=== PATIENT | female | born 1990 ===

== ENCOUNTER 2018-02-03 15:37 | Inpatient (IN) | payer MEDICAID, OTHER ==
--- NOTE | 2018-02-03 16:06 | ED PDOC ---
"Arrival/HPI - General Chief Complaint: Altered Mental Status Time Seen by Provider: 02/03/18 15:38 Historian: Patient - History of Present Illness Narrative History of Present Illness (Text): 02/03/18 16:10 A 27 year old female, whose past medical history includes pancreatitis and iron deficiency anemia? from vaginal bleeding, taking multivitamin/fish oil/iron supplement, NKDA, presents to the emergency department complaining of fatigue and jaundice for 1 week. Patient reports also that urine has been a darker color than usual. Pt. stated that she has weight loss change for the past half year, associated feeling fatigue and tired for the past 1 week with yellow skin coloring which is new for her, no alcohol or drug abuse, no tylenol over dose, no abnormal bruising, not taking any herbal medications. Patient denies any fever, chills, cough, abdominal pain, nausea, vomiting, dizziness, or any other complaints at this time. Also, patient denies any recent travel, and has no history of EtOH/substance abuse. No PMD Time/Duration: 1 week Symptom Onset: Sudden Symptom Course: Unchanged Past Medical History - Provider Review Nursing Documentation Reviewed: Yes - Travel History If Yes, travel location?: [place] - Infectious Disease Hx of Infectious Diseases: None - Cardiac Hx Cardiac Disorders: Yes - Pulmonary Hx Respiratory Disorders: No - Neurological Hx Neurological Disorder: No - HEENT Hx HEENT Disorder: No - Renal Hx Renal Disorder: No - Endocrine/Metabolic Hx Endocrine Disorders: No - Hematological/Oncological Hx Blood Disorders: Yes Hx Anemia: Yes - Integumentary Hx Dermatological Disorder: No - Musculoskeletal/Rheumatological Hx Musculoskeletal Disorders: No - Gastrointestinal Hx Gastrointestinal Disorders: Yes Hx Pancreatitis: Yes - Genitourinary/Gynecological Hx Genitourinary Disorders: Yes Other/Comment: IRREGULAR PERIOD - Psychiatric Hx Psychophysiologic Disorder: No Hx Substance Use: No - Surgical History Hx Section: Yes - Anesthesia Hx Anesthesia Reactions: No Hx Malignant Hyperthermia: No Family/Social History - Physician Review Nursing Documentation Reviewed: Yes Family/Social History: No Known Family HX Smoking Status: Never Smoked Hx Alcohol Use: No Hx Substance Use: No Allergies/Home Meds Allergies/Adverse Reactions: Allergies No Known Allergies Allergy (Verified 02/03/18 15:50) Home Medications: Home Meds Medication Instructions Recorded Confirmed Ferrous Gluconate [Iron] 1 tab PO DAILY 02/03/18 02/03/18 Multivitamin [Multi-Vitamin Daily] 1 tab PO DAILY 02/03/18 02/03/18 [place]-3 Fatty Acids/Fish Oil [Fish 1 cap PO DAILY 02/03/18 02/03/18 Oil 1,000 mg Capsule] Review of Systems - Physician Review All systems were reviewed & negative as marked: Yes - Review of Systems Constitutional: Fatigue, Weight Change. absent: Fevers, Night Sweats Eyes: absent: Vision Changes ENT: absent: Hearing Changes, Rhinorrhea Respiratory: absent: Cough Cardiovascular: absent: Chest Pain Gastrointestinal: absent: Abdominal Pain, Nausea, Vomiting Genitourinary Female: absent: Dysuria, Frequency Musculoskeletal: absent: Arthralgias, Myalgias Skin: Other (jaundice). absent: Rash, Pruritis Neurological: absent: Headache, Dizziness Psychiatric: absent: Anxiety, Depression, Suicidal Ideation Physical Exam Vital Signs Reviewed: Yes Vital Signs Temp Pulse Resp BP Pulse Ox 02/03/18 20:55 98.3 F 83 17 109/64 100 02/03/18 16:25 100.7 F H 101 H 18 105/67 100 02/03/18 15:52 99.8 F H 101 H 16 105/67 98 Temperature: Febrile Blood Pressure: Normal Pulse: Tachycardic Respiratory Rate: Normal Appearance: Positive for: Ill-Appearing Pain Distress: None Mental Status: Positive for: Alert and Oriented X 3 - Systems Exam Head: Present: Atraumatic, Normocephalic Pupils: Present: PERRL Extroacular Muscles: Present: EOMI Conjunctiva: Present: Normal Ears: Present: NORMAL TM, Normal Canal. No: Erythema Mouth: Present: Moist Mucous Membranes Pharnyx: No: ERYTHEMA, EXUDATE, TONSILS ENLARGED Neck: Present: Normal Range of Motion, Trachea Midline. No: Meningeal Signs, MIDLINE TENDERNESS, Paraspinal Tenderness, Lymphadenopathy Respiratory/Chest: Present: Clear to Auscultation, Good Air Exchange. No: Respiratory Distress, Accessory Muscle Use Cardiovascular: Present: Regular Rate and Rhythm, Normal S1, S2. No: Murmurs Abdomen: No: Tenderness, Distention, Peritoneal Signs, Rebound, Guarding Back: Present: Normal Inspection. No: CVA Tenderness, Midline Tenderness, Paraspinal Tenderness Upper Extremity: Present: Normal Inspection. No: Cyanosis, Edema Lower Extremity: Present: Normal Inspection. No: Edema Neurological: Present: GCS=15, CN II-XII Intact, Speech Normal, Motor Func Grossly Intact, Gait Normal, Memory Normal Skin: Present: Warm, Dry. No: Other (+jaundice noted generalized noted with conjunctival is yellow) Lymphatic: No: Cervical Adenopathy Psychiatric: Present: Alert, Oriented x 3, Normal Insight, Normal Concentration Medical Decision Making ED Course and Treatment: 02/03/18 16:14 Differential: hepatitis vs. cholangitis vs. Infectious [place] vs. Cancer vs. Iron Toxicity vs. Gilbert syndrome vs. Cholestasis vs. hemolytic anemia -Labs/lipase/hepatitis panel/acetaminophen level/salicylate level/Iron levels -abdominal sonogram -CT abdomen and pelvis -IVF/motrin -avoid tylenol -observe and reassess 02/03/18 18:19 -Sepsis activated, Febrile/tachycardia/Wbc 18.7 and bilirubibn >2.0, broad spectrum vancomycin 1gm and IV zosyn ordered as the source of etiology is not clear at this time. 02/03/18 19:42 -EKG: NSR @ 93 BPM, no ST elevation or depression, T wave inversion on lead III. -Chest xray: Elevation right hemidiaphragm possibly due to eventration. There appears to be some minor compressive type atelectasis of right lung base as well. -Abdominal sonogram: 1. Markedly enlarged liver with diffuse fatty infiltration. Please correlate clinically for hepatoparenchymal disease. 2. The gallbladder wall is thickened measuring 4.5 mm. There is pericholecystic fluid. No evidence of gallstones. Negative Wall's sign as per technologist. Correlate clinically. 3. The spleen is enlarged measuring 16 cm. -CT abdomen and pelvis: 1. There is significant pericholecystic fluid. Ultrasound correlation is recommended. 2. The liver is enlarged and diffuse fatty infiltration of the liver. There is an ill-defined hypodensity noted in the liver , measuring 2.2 cm. Possible solid lesion is not excluded. Further evaluation is advised with dedicated imaging. 3. The spleen is enlarged. -Urine hcg is negative -Labs show no acute findings except wbc 18.7 (blood culture ordered), AST 154 and ALT 42 (normal), total bilirubin 20.1 -Coag panel: INR 1.93 and PT 22.3 -Lipase within normal limit -Rapid strept is negative -Infectious mono is negative -Acetaminophen/Salicylate and alcohol level within normal limit. -UA show no UTI and NO BILIRUBIN -Drug screen is negative -IRON serum and TIBI within normal limit -I discussed about all labs/radiology results with the patient, she will need admission with GI and ID regarding about this. -I discussed the case with Dr. Lopez and the medical dermatologist, discussed about the labs/radiology results and agreed on the admission, they will follow up on the pending labs/radiology results including consult with GI/ID/General surgeon as she definitively need more test. 02/03/18 20:48 -Direct Bili 17.7 -I spoke to the GI, Dr. Ariel Alcantar, discussed about this case/labs/ radiology results, will consult on this case. - Critical Care Critical Care Minutes: 45 minutes Critical Care Time: Unstable Narrative Critical Care (Text): 02/03/18 18:23 Sepsis, IVF/vancomycin/zosyn, cardiac monitoring, organ failure - Lab Interpretations Lab Results: 02/03/18 16:40 02/03/18 16:40 Lab Results 02/03/18 20:00: Direct Bilirubin 17.7 H 02/03/18 17:55: Urine Opiates Screen Negative, Urine Methadone Screen Negative, Ur Barbiturates Screen Negative, Ur Phencyclidine Scrn Negative, Ur Amphetamines Screen Negative, U Benzodiazepines Scrn Negative, U Oth Cocaine Metabols Negative, U Cannabinoids Screen Negative 02/03/18 17:55: Ammonia 24 02/03/18 16:50: Urine Color Yellow, Urine Appearance Clear, Urine pH 6.5, Ur Specific [place] <= 1.005, Urine Protein Negative, Urine Glucose (UA) Negative, Urine Ketones Negative, Urine Blood Trace-intact H, Urine Nitrate Negative, Urine Bilirubin Negative, Urine Urobilinogen 0.2, Ur Leukocyte Esterase Negative , Urine RBC 0 - 2, Urine WBC 1 - 3, Ur Epithelial Cells 1 - 3, Urine Bacteria Few 02/03/18 16:50: Grp A Beta Strep Ag Negative 02/03/18 16:40: Iron 55, TIBC 367, % Saturation 15 L 02/03/18 16:40: Infectious [place] Assay Negative 02/03/18 16:40: pO2 45, VBG pH 7.38, VBG pCO2 41.0, VBG HCO3 24.3, VBG Total CO2 25.6, VBG O2 Sat (Calc) 84.0 H, VBG Base Excess -0.8 L, VBG Potassium 3.7, Sodium 132.0, Chloride 99.0, Glucose 118 H, Lactate 1.0, FiO2 21.0, Venous Blood Potassium 3.7 02/03/18 16:40: PT 22.3 H, INR 1.93 H, APTT 40.2 H 02/03/18 16:40: Transferrin 230.94, Alcohol, Quantitative < 10 02/03/18 16:40: Salicylates < 1 L, Acetaminophen < 10.0 L 02/03/18 16:40: WBC 18.7 H D, RBC 3.14 L, Hgb 10.5 L, Hct 31.1 L, MCV 99.0, MCH 33.4, MCHC 33.8, RDW 18.0 H, Plt Count 447, MPV 10.2, Gran % 87.2 H, Lymph % ( Auto) 6.5 L, [place] % (Auto) 5.4, Eos % (Auto) 0.5 L, Baso % (Auto) 0.4, Gran # 16.28 H, Lymph # (Auto) 1.2, [place] # (Auto) 1.0 H, Eos # (Auto) 0.1, Baso # (Auto ) 0.07 02/03/18 16:40: Hepatitis A IgM Ab Negative, Hep Bs Antigen Negative, Hep B Core IgM Ab Negative, Hepatitis C Antibody Negative 02/03/18 16:40: Sodium 136, Chloride 99, Potassium 3.7, Carbon Dioxide 23, Anion Gap 17, BUN 7, Creatinine 0.6 L, Est GFR ( Amer) > 60, Est GFR (Non -Af Amer) > 60, Random Glucose 116 H, Calcium 8.7, Magnesium 1.9, Total Bilirubin 20.1 H*, AST 154 H, ALT 42, Alkaline Phosphatase 170 H, Total Protein 7.6, Albumin 3.5, Globulin 4.1, Albumin/Globulin Ratio 0.8 L, Lipase < 10 L I have reviewed the lab results: Yes - RAD Interpretation Radiology Orders: 02/03/18 16:14 ABD & PELVIS IV CONTRAST ONLY [CT] Stat CHEST PORTABLE [RAD] Stat ABDOMEN COMPLETE [US] Stat Chest xray: HISTORY: medical clearance COMPARISON: No prior. FINDINGS: LUNGS: Elevation right hemidiaphragm possibly due to eventration. There appears to be some minor compressive type atelectasis of right lung base as well. PLEURA: No significant pleural effusion identified, no pneumothorax apparent. CARDIOVASCULAR: Normal. OSSEOUS STRUCTURES: No significant abnormalities. VISUALIZED UPPER ABDOMEN: Normal. OTHER FINDINGS: None. IMPRESSION: Elevation right hemidiaphragm possibly due to eventration. There appears to be some minor compressive type atelectasis of right lung base as well. The elliptical Abdominal sonogram: Liver: Markedly enlarged liver with diffuse fatty infiltration. Please correlate clinically for hepatoparenchymal disease. No intrahepatic bile duct dilation. Gallbladder: The gallbladder wall is thickened measuring 4.5 mm. There is pericholecystic fluid. No evidence of gallstones. Negative Wall's sign as per technologist. Correlate clinically. Common bile duct: Unremarkable as visualized. No stones. No dilation. Pancreas: Unremarkable as visualized. Kidneys: Unremarkable. No stones. No solid mass. No hydronephrosis. Spleen: The spleen is enlarged measuring 16 cm. Aorta: Unremarkable. No aneurysm. Inferior vena cava: Unremarkable. IMPRESSION: 1. Markedly enlarged liver with diffuse fatty infiltration. Please correlate clinically for hepatoparenchymal disease. 2. The gallbladder wall is thickened measuring 4.5 mm. There is pericholecystic fluid. No evidence of gallstones. Negative Wall's sign as per technologist. Correlate clinically. 3. The spleen is enlarged measuring 16 cm. Dictated and Authenticated by: Lucy Starks MD 02/03/2018 7:36 PM Eastern Time ([place] & [place]) CT abdomen and pelvis: Lung bases: 4 mm nodule at the right lung base. ABDOMEN: Liver: The liver is enlarged and diffuse fatty infiltration of the liver. There is an ill-defined hypodensity noted in the liver , measuring 2.2 cm. Possible solid lesion is not excluded. Further evaluation is advised with dedicated imaging. Gallbladder and bile ducts: There is significant pericholecystic fluid. Ultrasound correlation is advised. No ductal dilation. Pancreas: Pancreas is limited. No ductal dilation. Spleen: The spleen is enlarged. Adrenals: Unremarkable. No mass. Kidneys and ureters: Unremarkable. No solid mass. No hydronephrosis. Stomach and bowel: Bowel evaluation is limited. No obstruction. No mucosal thickening. PELVIS: Appendix: The appendix is not well-visualized. SHERON CASPER | Preliminary Radiology Report CYTOGENETICS TECHNOLOGIST (QA) DISCREPANCY? If there is a discrepancy between the preliminary and final interpretation, please notify [facility] via [email or web address]. If you do not have access to our QA portal, call our QA team at [phone] CONFIDENTIALITY STATEMENT This report is intended only for the use of the referring physician, and only in accordance with law, If you received this in error, call [phone] Page 2 of 2 Bladder: Unremarkable. No mass. Reproductive: Unremarkable as visualized. ABDOMEN and PELVIS: Intraperitoneal space: Unremarkable. No free air. No significant fluid collection. Bones/joints: No acute fracture. No dislocation. Soft tissues: Unremarkable. Vasculature: Unremarkable. No abdominal aortic aneurysm. Lymph nodes: Unremarkable. No enlarged lymph nodes. IMPRESSION: 1. There is significant pericholecystic fluid. Ultrasound correlation is recommended. 2. The liver is enlarged and diffuse fatty infiltration of the liver. There is an ill-defined hypodensity noted in the liver , measuring 2.2 cm. Possible solid lesion is not excluded. Further evaluation is advised with dedicated imaging. 3. The spleen is enlarged. Thank you for allowing us to participate in the care of your patient. Dictated and Authenticated by: Lucy Starks MD 02/03/2018 7:33 PM Eastern Time ([place] & [place]) Enterprise Services Manager: Radiologist - EKG Interpretation EKG Interpretation (Text): 02/03/18 19:05 -EKG: NSR @ 93 BPM, no ST elevation or depression, T wave inversion on lead III. Interpreted by ED Physician: Yes Type: 12 lead EKG - Medication Orders Current Medication Orders: Ferrous Gluconate (Fergon) 324 mg PO DAILY VIJAYA Sodium Chloride (Sodium Chloride 0.9%) 1,000 mls @ 100 mls/hr IV .Q10H VIJAYA Last Admin: 02/03/18 20:51 Dose: 100 mls/hr eMAR Start Stop Document 02/03/18 20:51 EQ (Rec: 02/03/18 20:52 EQ [email or web address] Intravenous Solution Start Date 02/03/18 Start Time 20:52 Metronidazole (Flagyl) 500 mg in 100 mls @ 100 mls/hr IVPB Q8 VIJAYA PRN Reason: Protocol Piperacillin Sod/Tazobactam Sod (Zosyn 3.375 In Ns 100ml) 100 mls @ 200 mls/hr IVPB Q6 VIJAYA PRN Reason: Protocol Stop: 02/04/18 06:29 Multivitamins (Thera Tab) 1 tab PO DAILY VIJAYA Pantoprazole Sodium (Protonix Inj) 40 mg IVP DAILY VIJAYA Discontinued Medications Sodium Chloride (Sodium Chloride 0.9%) 1,000 mls @ 999 mls/hr IV .Q1H1M STA Stop: 02/03/18 17:14 Last Admin: 02/03/18 16:59 Dose: 999 mls/hr eMAR Start Stop Document 02/03/18 16:59 EQ (Rec: 02/03/18 16:59 EQ [email or web address] Intravenous Solution Start Date 02/03/18 Start Time 16:59 Vancomycin HCl (Vancomycin 1gm) 1 gm in 250 mls @ 167 mls/hr IVPB STAT STA PRN Reason: Protocol Stop: 02/03/18 19:47 Last Admin: 02/03/18 20:02 Dose: 167 mls/hr eMAR Start Stop Document 02/03/18 20:02 EQ (Rec: 02/03/18 20:02 EQ [email or web address]) Intravenous Solution Start Date 02/03/18 Start Time 20:02 Piperacillin Sod/Tazobactam Sod (Zosyn 3.375 In Ns 100ml) 100 mls @ 200 mls/hr IVPB STAT STA PRN Reason: Protocol Stop: 02/03/18 18:47 Last Admin: 02/03/18 18:56 Dose: 200 mls/hr eMAR Start Stop Document 02/03/18 18:56 EQ (Rec: 02/03/18 18:56 EQ [email or web address] Intravenous Solution Start Date 02/03/18 Start Time 18:56 Metronidazole (Flagyl) 500 mg in 100 mls @ 100 mls/hr IVPB STAT STA PRN Reason: Protocol Stop: 02/03/18 21:02 Ibuprofen (Motrin Tab) 800 mg PO STAT STA Stop: 02/03/18 16:35 Last Admin: 02/03/18 16:59 Dose: 800 mg - PA / FINGERNAIL TECHNICIAN / Resident Statement MD/DO has reviewed & agrees with the documentation as recorded. - Scribe Statement The provider has reviewed the documentation as recorded by the Ora Polanco Provider Scribe Attestation: All medical record entries made by the Ora were at my direction and personally dictated by me. I have reviewed the chart and agree that the record accurately reflects my personal performance of the history, physical exam, medical decision making, and the department course for this patient. I have also personally directed, reviewed, and agree with the discharge instructions and disposition. Disposition/Present on Arrival - Present on Arrival Any Indicators Present on Arrival: No History of DVT/PE: No History of Uncontrolled Diabetes: No Urinary Catheter: No History of Decub. Ulcer: No History Surgical Site Infection Following: None - Disposition Have Diagnosis and Disposition been Completed?: Yes Diagnosis: Hyperbilirubinemia, Jaundice, Sepsis, Leukocytosis, Hepatic lesion, Spleen enlarged Disposition: HOSPITALIZED Disposition Time: 19:47 Patient Plan: Admission Patient Problems: Current Active Problems Problem Status Onset Hepatic lesion Acute Hyperbilirubinemia Acute Jaundice Acute Leukocytosis Acute Sepsis Acute Spleen enlarged Acute Condition: STABLE"
[2018-02-03] MEDS ORDERED: Sodium Chloride 0.9% 1,000 ML IV STA (16:14)
--- NOTE | 2018-02-03 16:38 | ED PDOC ---
Arrival/HPI - General Chief Complaint: Altered Mental Status Time Seen by Provider: 02/03/18 15:38 Historian: Patient Past Medical History - Travel History If Yes, travel location?: [place] - Infectious Disease Hx of Infectious Diseases: None - Cardiac Hx Cardiac Disorders: Yes - Pulmonary Hx Respiratory Disorders: No - Neurological Hx Neurological Disorder: No - HEENT Hx HEENT Disorder: No - Renal Hx Renal Disorder: No - Endocrine/Metabolic Hx Endocrine Disorders: No - Hematological/Oncological Hx Blood Disorders: Yes Hx Anemia: Yes - Integumentary Hx Dermatological Disorder: No - Musculoskeletal/Rheumatological Hx Musculoskeletal Disorders: No - Gastrointestinal Hx Gastrointestinal Disorders: Yes Hx Pancreatitis: Yes - Genitourinary/Gynecological Hx Genitourinary Disorders: Yes Other/Comment: IRREGULAR PERIOD - Psychiatric Hx Psychophysiologic Disorder: No Hx Substance Use: No - Surgical History Hx Section: Yes - Anesthesia Hx Anesthesia Reactions: No Hx Malignant Hyperthermia: No Family/Social History Family/Social History: No Known Family HX Smoking Status: Never Smoked Hx Alcohol Use: No Hx Substance Use: No Allergies/Home Meds Allergies/Adverse Reactions: Allergies No Known Allergies Allergy (Verified 02/03/18 15:50) Home Medications: Home Meds Medication Instructions Recorded Confirmed Ferrous Gluconate [Iron] 1 tab PO DAILY 02/03/18 02/03/18 Multivitamin [Multi-Vitamin Daily] 1 tab PO DAILY 02/03/18 02/03/18 [place]-3 Fatty Acids/Fish Oil [Fish 1 cap PO DAILY 02/03/18 02/03/18 Oil 1,000 mg Capsule] Physical Exam Vital Signs Temp Pulse Resp BP Pulse Ox 02/03/18 16:25 100.7 F H 101 H 18 105/67 100 02/03/18 15:52 99.8 F H 101 H 16 105/67 98 Medical Decision Making - RAD Interpretation Radiology Orders: 02/03/18 16:14 ABD & PELVIS IV CONTRAST ONLY [CT] Stat CHEST PORTABLE [RAD] Stat ABDOMEN COMPLETE [US] Stat - Medication Orders Current Medication Orders: Sodium Chloride (Sodium Chloride 0.9%) 1,000 mls @ 999 mls/hr IV .Q1H1M STA Stop: 02/03/18 17:14 Ibuprofen (Motrin Tab) 800 mg PO STAT STA Stop: 02/03/18 16:35 Disposition/Present on Arrival - Present on Arrival History of DVT/PE: No History of Uncontrolled Diabetes: No Urinary Catheter: No History of Decub. Ulcer: No History Surgical Site Infection Following: None - Disposition Forms: [employer] ([place])
[2018-02-03 16:49] LABS: VENOUS BLOOD GAS BASE EXCESS -0.8 mmol/L (0.0-2.0); VENOUS BLOOD GAS PO2 45 mm/Hg (30-55); VENOUS BLOOD PH 7.38 (7.32-7.43)
[2018-02-03 16:51] LABS: BASO # 0.07 K/mm3 (0.0-2.0); BASO % 0.4 % (0.0-3.0); EOS # 0.1 (0.0-0.7); EOS % 0.5 % (1.5-5.0); GRAN # 16.28 (1.4-6.5); GRAN % 87.2 % (50.0-68.0); HEMOGLOBIN 10.5 g/dL (12.0-16.0); LYMPH # 1.2 (1.2-3.4); LYMPH % 6.5 % (22.0-35.0); MEAN CORPUSCULAR HEMOGLOBIN 33.4 pg (25.0-35.0); MEAN CORPUSCULAR HGB CONC 33.8 g/dl (31.0-37.0); MEAN PLATELET VOLUME 10.2 fl (7.0-11.0); MONO % 5.4 % (1.0-6.0); RBC 3.14 10^6/uL (3.5-6.1); WHITE BLOOD COUNT 18.7 10^3/ul (4.5-11.0)
[2018-02-03 17:00] LABS: IRON 55 ug/dL (45-180)
[2018-02-03 17:01] LABS: ALT/SGPT 42 U/L (7-56); AST/SGOT 154 U/L (14-36); BLOOD UREA NITROGEN 7 mg/dL (7-21); CALCIUM 8.7 mg/dL (8.4-10.5); GFR NON-AFRICAN AMERICAN > 60; SALICYLATE < 1 mg/dL (2.0-20.0)
[2018-02-03 17:02] LABS: ACETAMINOPHEN < 10.0 ug/ml (10.0-20.0); ALB/GLOB RATIO 0.8 (1.1-1.8); ALBUMIN 3.5 g/dL (3.0-4.8); LIPASE < 10 U/L (23-300)
[2018-02-03 17:03] LABS: INR 1.93 (0.93-1.08); PARTIAL THROMBOPLASTIN TIME 40.2 Seconds (25.1-36.5); PROTHROMBIN TIME 22.3 SECONDS (9.4-12.5)
[2018-02-03 17:07] LABS: PH,URINE 6.5 (4.7-8.0); URINE BILIRUBIN NEGATIVE (NEGATIVE); URINE BLOOD TRACE-INTACT (NEGATIVE); URINE GLUCOSE (UA) NEGATIVE (NEGATIVE); URINE LEUKOCYTE ESTERASE NEGATIVE Leu/uL (NEGATIVE); URINE PROTEIN NEGATIVE mg/dL (<30 mg/dL); URINE UROBILINOGEN 0.2 E.U./dL (<1 E.U./dL)
[2018-02-03 17:10] LABS: % IRON SATURATION 15 % (20-55); TOTAL IRON BINDING CAPACITY 367 ug/dL (265-497)
[2018-02-03 17:12] LABS: URINE APPEARANCE CLEAR (CLEAR); URINE COLOR YELLOW (YELLOW)
[2018-02-03 17:14] LABS: URINE BACTERIA FEW (NEG); URINE RBC 0 - 2 /hpf (0-2)
--- NOTE | 2018-02-03 17:32 | RAD ---
HISTORY: medical clearance COMPARISON: No prior. FINDINGS: LUNGS: Elevation right hemidiaphragm possibly due to eventration. There appears to be some minor compressive type atelectasis of right lung base as well. PLEURA: No significant pleural effusion identified, no pneumothorax apparent. CARDIOVASCULAR: Normal. OSSEOUS STRUCTURES: No significant abnormalities. VISUALIZED UPPER ABDOMEN: Normal. OTHER FINDINGS: None. IMPRESSION: Elevation right hemidiaphragm possibly due to eventration. There appears to be some minor compressive type atelectasis of right lung base as well. The elliptical
[2018-02-03] MEDS ORDERED: Iohexol 350 MG/100 ML VIAL ONE (17:46)
[2018-02-03] MEDS ORDERED: Vancomycin 1gm in NS 250ml 1 GM/250 ML BAG IVPB STA (18:18)
[2018-02-03] MEDS ORDERED: Piperacillin/Tazobact 3.375 gm 100 ML IVPB STA (18:18)
[2018-02-03 18:30] LABS: BARBITURATES, UR NEGATIVE (NEGATIVE); BENZODIAZEPINES, UR NEGATIVE (NEGATIVE); OPIATES, UR NEGATIVE (NEGATIVE); PHENCYCLIDINE, UR NEGATIVE (NEGATIVE)
[2018-02-03 19:19] LABS: TRANSFERRIN 230.94 mg/dL (206-381)
[2018-02-03 19:42] LABS: HEPATITIS B SURFACE AG Negative (NEGATIVE)
[2018-02-03 19:47] LABS: HEPATITIS A IGM NEGATIVE (NEGATIVE); HEPATITIS B CORE AB NEGATIVE (NEGATIVE)
[2018-02-03 19:59] LABS: HEPATITIS C ANTIBODY NEGATIVE (NEGATIVE)
[2018-02-03] MEDS ORDERED: metroNIDAZOLE IV 500 mg/100 ml 500 MG/100 ML BAG IVPB STA (20:03)
--- NOTE | 2018-02-03 20:40 | CP.PCM.HP ---
<KennethZee - Last Filed: 02/03/18 21:36> History of Present Illness - History of Present Illness History of Present Illness: H&P for HospitalistBilly PGY2 This is a 27yo F with past medical history of pancreatitis, hypertriglycemia, and anemia who came to ED for yellowing of skin and fatigue x 10 days. Patient reports that she noticed that her skin started to get yellow over the past few days. She denies having any symptoms such as abdominal pain, nausea/vomiting/ diarrhea, constipation, fever/chills, dysuria/hematuria, numbness/tingling, chest pain or shortness of breath. She states that sometimes after she eats, she feels that her stomach feels distended. She denies recent travel, tylenol or alcohol use. She went to [place] in August 2017, but has not traveled since. Patient seen an outpatient clinic for her anemia. She denies uterine bleeding and takes Iron pills at home. She had pancreatitis at last admission. CBD was normal. Past medical history: Pancreatitis, hypertriglycemia, anemia Past surgical history: 2012 Home meds: Reviewed. Takes Iron supplement, Multivitamin and fish oil Allergies: NKDA Social history: Drinks alcohol occasionally, denies drug or tobacco use. w/ 1 child Family History: Dad-DM, Uncle: Leukemia Present on Admission - Present on Admission Any Indicators Present on Admission: No Review of Systems - Review of Systems All systems: reviewed and no additional remarkable complaints except Review of Systems: 12 point ROS reviewed as per HPI and is otherwise negative. Past Patient History - Infectious Disease Hx of Infectious Diseases: None - Past Social History Smoking Status: Never Smoked Alcohol: Occasional Drugs: Denies Home Situation {Lives}: With Family - CARDIAC Hx Cardiac Disorders: Yes - PULMONARY Hx Respiratory Disorders: No - NEUROLOGICAL Hx Neurological Disorder: No - HEENT Hx HEENT Problems: No - RENAL Hx Chronic Kidney Disease: No - ENDOCRINE/METABOLIC Hx Endocrine Disorders: No - HEMATOLOGICAL/ONCOLOGICAL Hx Blood Disorders: Yes Hx Anemia: Yes - INTEGUMENTARY Hx Dermatological Problems: No - MUSCULOSKELETAL/RHEUMATOLOGICAL Hx Musculoskeletal Disorders: No - GASTROINTESTINAL Hx Gastrointestinal Disorders: Yes Hx Pancreatitis: Yes - GENITOURINARY/GYNECOLOGICAL Hx Genitourinary Disorders: Yes Other/Comment: IRREGULAR PERIOD - PSYCHIATRIC Hx Psychophysiologic Disorder: No Hx Substance Use: No - SURGICAL HISTORY Hx Section: Yes - ANESTHESIA Hx Anesthesia Reactions: No Hx Malignant Hyperthermia: No Meds Allergies/Adverse Reactions: Allergies Allergy/AdvReac Type Severity Reaction Status Date / Time No Known Allergies Allergy Verified 02/03/18 15:50 Physical Exam - Constitutional Appears: No Acute Distress - Head Exam Head Exam: ATRAUMATIC, NORMAL INSPECTION, NORMOCEPHALIC - Eye Exam Eye Exam: Normal appearance, PERRL, Scleral icterus Pupil Exam: NORMAL ACCOMODATION, PERRL - ENT Exam ENT Exam: Mucous Membranes Moist - Respiratory Exam Respiratory Exam: Clear to Auscultation Bilateral, NORMAL BREATHING PATTERN. absent: Rales, Rhonchi, Wheezes - Cardiovascular Exam Cardiovascular Exam: REGULAR RHYTHM, +S1, +S2. absent: Gallop, Rubs, Systolic Murmur - GI/Abdominal Exam GI & Abdominal Exam: Distended, Normal Bowel Sounds, Organomegaly (hepatomegaly ), Soft. absent: Guarding, Mass, Rebound, Rigid, Tenderness - Extremities Exam Extremities exam: Positive for: normal inspection. Negative for: calf tenderness, pedal edema - Neurological Exam Neurological exam: Alert, CN II-XII Intact, Oriented x3 - Psychiatric Exam Psychiatric exam: Normal Affect, Normal Mood - Skin Skin Exam: Dry, Warm Results - Vital Signs Recent Vital Signs: Last Vital Signs Temp 100.7 F H 02/03/18 16:25 Pulse 101 H 02/03/18 16:25 Resp 18 02/03/18 16:25 BP 105/67 02/03/18 16:25 Pulse Ox 100 02/03/18 16:25 - Labs Result Diagrams: 02/03/18 16:40 02/03/18 16:40 Assessment & Plan - Assessment and Plan (Free Text) Assessment: This is a 27yo F with past medical history of pancreatitis, hypertriglycemia, and anemia who was admitted for fever, leukocytosis and painless jaundice. Plan: 1. Painless Jaundice - secondary to cholangitis v. hepatic mass seen on CT - Bilirubin 20, direct bili 17, AST 147, Alk phos: 170 - leukocytosis w/ fever (Tmax 100.7) - CT A/P preliminary read showed pericholecystic fluid, hepatomegaly, splenomegaly, ill-defined liver hypodensity 2.2 cm. Possible solid lesion is not excluded - Abdominal U/S: no gallstones, CBD 3mm, GB wall thickening with pericholecystic fluid, hepatomegaly, splenomegaly - Hep panel negative, Alcohol negative, UDS negative - Will check lipid panel, AFP, Ca 19-9 - Patient is on Zosyn and Flagyl - GI on consult - reviewed patient with GI fellow. Patient will need EUS/ERCP - Will keep patient NPO - NS@100 - Motrin prn fever. Hold hepatotoxic agents. 2. Anemia - Hgb 10.3, MCV: 99 - Iron studies showed low %sat, Iron normal - Will check B12 and folate - No overt signs of bleeding- will continue to monitor H/H - Continue PO iron and multivitamin 3. Hx of Hypertriglyceridemia - Will check lipid panel - Continue fish oil GI ppx: Protonix DVT ppx: SCDs Case seen, discussed and reviewed with Dr. John Cooper PGY2 - Date & Time Date: 02/03/18 Time: 21:36 <Lina Lopez - Last Filed: 02/04/18 00:04> Results - Vital Signs Recent Vital Signs: Last Vital Signs Temp 98.3 F 02/03/18 20:55 Pulse 75 02/03/18 22:41 Resp 19 02/03/18 22:41 BP 109/64 02/03/18 21:12 Pulse Ox 100 02/03/18 21:12 - Labs Result Diagrams: 02/03/18 16:40 02/03/18 16:40 Labs: Laboratory Results - last 24 hr 02/03/18 21:00 pO2 105 H VBG pH 7.39 VBG pCO2 36.0 L VBG HCO3 21.8 VBG Total CO2 22.9 VBG O2 Sat (Calc) 99.5 H VBG Base Excess -2.6 L VBG Potassium 3.5 L Sodium 134.0 Chloride 105.0 Glucose 99 Lactate 0.9 FiO2 21.0 Venous Blood Potassium 3.5 L Attending/Attestation - Attestation I have personally seen and examined this patient.: Yes I have fully participated in the care of the patient.: Yes I have reviewed all pertinent clinical information: Yes Notes (Text): 02/04/18 00:03 Patient was seen when she was in bed # 18 in the ER. Agree with history , physical examination , assessment and plan.
[2018-02-03] MEDS: Sodium Chloride 0.9% 1,000 ML IV SCH (20:51)
[2018-02-03 21:07] LABS: VENOUS BLOOD GAS BASE EXCESS -2.6 mmol/L (0.0-2.0); VENOUS BLOOD GAS PO2 105 mm/Hg (30-55); VENOUS BLOOD PH 7.39 (7.32-7.43)
--- NOTE | 2018-02-03 21:33 | PCM.SEPTIC ---
<Zee Cooper - Last Filed: 02/03/18 21:32> Sepsis Progress Note - Reassessment Type Date of Evaluation: 02/03/18 Time of Evaluation: 21:32 Reassessment Type: Non-invasive reassessment - Non Invasive Reassessment Were the most recent vital sign reviewed: Yes Vital Sign (Latest): Temp Pulse Resp BP Pulse Ox 98.3 F 89 17 109/64 100 02/03/18 20:55 02/03/18 21:12 02/03/18 21:12 02/03/18 21:12 02/03/18 21:12 Cardiovascular: Yes: Regular Rate, Rhythm. No: Murmur, Tachycardia Respiratory: Yes: Normal Breath Sounds. No: Rales, Rhonchi, Wheezing Capillary Refill: Normal (Less than 2 sec) Skin: Warm, Dry, Jaundice <Lina Lopez - Last Filed: 02/03/18 23:59> Sepsis Progress Note - Non Invasive Reassessment Vital Sign (Latest): Temp Pulse Resp BP Pulse Ox 98.3 F 75 19 109/64 100 02/03/18 20:55 02/03/18 22:41 02/03/18 22:41 02/03/18 21:12 02/03/18 21:12 Attending/Attestation - Attestation I have personally seen and examined this patient.: Yes I have fully participated in the care of the patient.: Yes I have reviewed all pertinent clinical information, including history, physical exam and plan: Yes
[2018-02-03 23:49] VITALS: BMI 30.5
[2018-02-04] MEDS: Piperacillin/Tazobact 3.375 gm 100 ML IVPB SCH ×5 (00:58→23:20)
[2018-02-04] MEDS ORDERED: metroNIDAZOLE IV 500 mg/100 ml 500 MG/100 ML BAG IVPB SCH (06:00)
[2018-02-04] MEDS: Sodium Chloride 0.9% 1,000 ML IV SCH ×2 (06:03→17:36)
[2018-02-04 07:24] LABS: BASO # 0.05 K/mm3 (0.0-2.0); BASO % 0.5 % (0.0-3.0); EOS # 0.1 (0.0-0.7); EOS % 1.2 % (1.5-5.0); GRAN # 9.07 (1.4-6.5); GRAN % 84.6 % (50.0-68.0); HEMOGLOBIN 9.4 g/dL (12.0-16.0); LYMPH # 0.7 (1.2-3.4); LYMPH % 6.5 % (22.0-35.0); MEAN CELL VOLUME 101.1 fl (80.0-105.0); MEAN CORPUSCULAR HEMOGLOBIN 33.1 pg (25.0-35.0); MEAN CORPUSCULAR HGB CONC 32.8 g/dl (31.0-37.0); MONO # 0.8 (0.1-0.6); MONO % 7.2 % (1.0-6.0); RBC 2.84 10^6/uL (3.5-6.1); RED CELL DISTRIBUTION WIDTH 18.4 % (11.5-14.5); WHITE BLOOD COUNT 10.7 10^3/ul (4.5-11.0)
[2018-02-04 07:53] LABS: INR 1.96 (0.93-1.08); PROTHROMBIN TIME 22.9 SECONDS (9.4-12.5)
[2018-02-04 07:56] LABS: ALB/GLOB RATIO 0.8 (1.1-1.8); ALBUMIN 2.9 g/dL (3.0-4.8); ALT/SGPT 36 U/L (7-56); AST/SGOT 124 U/L (14-36); BLOOD UREA NITROGEN 4 mg/dL (7-21); CALCIUM 8.1 mg/dL (8.4-10.5); GFR NON-AFRICAN AMERICAN > 60
--- NOTE | 2018-02-04 08:08 | CP.PCM.CON ---
<Ariel Isaac - Last Filed: 02/04/18 10:15> History of Present Illness - History of Present Illness History of Present Illness: PGY5 GI Fellow Consult Note Patient is a 27yo female with PMHx significant for anemia who presented to the ED with complaint of fatigue and jaundice. Approximately 10 days prior to admission patient noted skin beginning to turn yellow. In the days that followed , she became very fatigued, sleeping most of the day. Symptoms worsened to the point where she felt she could not get out of bed and jaundice intensified, thus she came to the ED for evaluation. She admits to dark yellow urine but denies pale stools. No new medications or OTCs/supplements and only uses Ferrous sulfate 325mg once daily at home. Vehemently denies any drug or EtOH use. Denies unintentional weight loss, night sweats, pruritus, fever, chills, nausea, vomiting. Some occasional bloating. Traveled to [place] in August 2017, denies sick contacts. No prior history of IVDU, blood transfusions or known viral hepatitis. No family history of liver disease. On arrival to the ED, patient was found to have leukocytosis (18.7), macrocytic anemia (10.5) and direct hyperbilirubinemia (20.1). CT of the abdomen reviewed on rounds reveals significant hepatosplenomegaly with a liver lesion noted in the superior right lobe of the liver. U/S is pending. Currently, patient has no significant complaints. 12 system ROS performed and negative except where stated PMHx: Anemia - previously told 2/2 menses PSHx: FHx: Brother from [place] at 29yo (drug abuse hx); Uncle with leukemia Social: Denies EtOH, tobacco or illicit drug use Endo: No prior endoscopic evaluations Past Patient History - Infectious Disease Hx of Infectious Diseases: None - Past Social History Smoking Status: Never Smoked - CARDIAC Hx Cardiac Disorders: Yes Hx Hypercholesterolemia: Yes - PULMONARY Hx Respiratory Disorders: No - NEUROLOGICAL Hx Neurological Disorder: No - HEENT Hx HEENT Problems: No - RENAL Hx Chronic Kidney Disease: No - ENDOCRINE/METABOLIC Hx Endocrine Disorders: No - HEMATOLOGICAL/ONCOLOGICAL Hx Blood Disorders: Yes Hx Anemia: Yes - INTEGUMENTARY Hx Dermatological Problems: No - MUSCULOSKELETAL/RHEUMATOLOGICAL Hx Musculoskeletal Disorders: No Hx Falls: No - GASTROINTESTINAL Hx Gastrointestinal Disorders: Yes Hx Pancreatitis: Yes - GENITOURINARY/GYNECOLOGICAL Hx Genitourinary Disorders: Yes Other/Comment: IRREGULAR PERIOD - PSYCHIATRIC Hx Psychophysiologic Disorder: No Hx Substance Use: No - SURGICAL HISTORY Hx Surgeries: Yes Other/Comment: - ANESTHESIA Hx Anesthesia Reactions: No Hx Malignant Hyperthermia: No Meds Allergies/Adverse Reactions: Allergies Allergy/AdvReac Type Severity Reaction Status Date / Time No Known Allergies Allergy Verified 02/03/18 15:50 - Medications Medications: Current Medications Ferrous Gluconate (Fergon) 324 mg PO DAILY COUNTS INCLUDE 234 BEDS AT THE [facility] Sodium Chloride (Sodium Chloride 0.9%) 1,000 mls @ 100 mls/hr IV .Q10H COUNTS INCLUDE 234 BEDS AT THE [facility] Last Admin: 02/04/18 06:03 Dose: 100 mls/hr Metronidazole (Flagyl) 500 mg in 100 mls @ 100 mls/hr IVPB Q8 VIJAYA PRN Reason: Protocol Last Admin: 02/04/18 05:11 Dose: 100 mls/hr Piperacillin Sod/Tazobactam Sod (Zosyn 3.375 In Ns 100ml) 100 mls @ 200 mls/hr IVPB Q6 VIJAYA PRN Reason: Protocol Stop: 02/04/18 18:29 Ibuprofen (Motrin Tab) 400 mg PO Q6H PRN PRN Reason: Fever >100.4 F Multivitamins (Thera Tab) 1 tab PO DAILY COUNTS INCLUDE 234 BEDS AT THE [facility] Pantoprazole Sodium (Protonix Inj) 40 mg IVP DAILY COUNTS INCLUDE 234 BEDS AT THE [facility] Physical Exam - Constitutional Appears: No Acute Distress - Head Exam Head Exam: ATRAUMATIC - Eye Exam Eye Exam: EOMI, PERRL, Scleral icterus - ENT Exam ENT Exam: Mucous Membranes Moist - Respiratory Exam Respiratory Exam: Clear to Auscultation Bilateral. absent: Rales, Rhonchi, Wheezes - Cardiovascular Exam Cardiovascular Exam: RRR, +S1, +S2. absent: Diastolic murmur, Systolic Murmur - GI/Abdominal Exam GI & Abdominal Exam: Normal Bowel Sounds, Organomegaly (palpable hepatomegaly), Soft. absent: Distended, Firm, Guarding, Mass, Rigid, Tenderness - Extremities Exam Extremities exam: Positive for: normal inspection. Negative for: pedal edema - Neurological Exam Neurological exam: Alert, Oriented x3 - Psychiatric Exam Psychiatric exam: Normal Affect, Normal Mood - Skin Skin Exam: Dry, Warm Additional comments: jaundice Results - Vital Signs Recent Vital Signs: Last Vital Signs Temp 98.1 F 02/04/18 05:50 Pulse 70 02/04/18 05:57 Resp 18 02/04/18 05:50 BP 99/52 L 02/04/18 05:50 Pulse Ox 98 02/04/18 05:50 - Labs Result Diagrams: 02/04/18 06:30 02/04/18 06:30 Labs: Laboratory Results - last 24 hr 02/03/18 02/04/18 02/04/18 21:00 06:30 06:30 WBC 10.7 D RBC 2.84 L Hgb 9.4 L Hct 28.7 L MCV 101.1 MCH 33.1 MCHC 32.8 RDW 18.4 H Plt Count 310 MPV 10.0 Gran % 84.6 H Lymph % (Auto) 6.5 L [place] % (Auto) 7.2 H Eos % (Auto) 1.2 L Baso % (Auto) 0.5 Gran # 9.07 H Lymph # (Auto) 0.7 L [place] # (Auto) 0.8 H Eos # (Auto) 0.1 Baso # (Auto) 0.05 PT INR pO2 105 H VBG pH 7.39 VBG pCO2 36.0 L VBG HCO3 21.8 VBG Total CO2 22.9 VBG O2 Sat (Calc) 99.5 H VBG Base Excess -2.6 L VBG Potassium 3.5 L Sodium 134.0 141 Chloride 105.0 106 Glucose 99 Lactate 0.9 FiO2 21.0 Potassium 3.3 L Carbon Dioxide 23 Anion Gap 15 BUN 4 L Creatinine 0.5 L Est GFR ( Amer) > 60 Est GFR (Non-Af Amer) > 60 Random Glucose 88 Calcium 8.1 L Total Bilirubin 16.2 H AST 124 H ALT 36 Alkaline Phosphatase 141 H Total Protein 6.3 Albumin 2.9 L Globulin 3.4 Albumin/Globulin Ratio 0.8 L Venous Blood Potassium 3.5 L 02/04/18 06:30 WBC RBC Hgb Hct MCV MCH MCHC RDW Plt Count MPV Gran % Lymph % (Auto) [place] % (Auto) Eos % (Auto) Baso % (Auto) Gran # Lymph # (Auto) [place] # (Auto) Eos # (Auto) Baso # (Auto) PT 22.9 H INR 1.96 H pO2 VBG pH VBG pCO2 VBG HCO3 VBG Total CO2 VBG O2 Sat (Calc) VBG Base Excess VBG Potassium Sodium Chloride Glucose Lactate FiO2 Potassium Carbon Dioxide Anion Gap BUN Creatinine Est GFR ( Amer) Est GFR (Non-Af Amer) Random Glucose Calcium Total Bilirubin AST ALT Alkaline Phosphatase Total Protein Albumin Globulin Albumin/Globulin Ratio Venous Blood Potassium Assessment & Plan - Assessment and Plan (Free Text) Assessment: Patient is a 27yo female with PMHx significant for anemia who presented to the ED with complaint of fatigue and jaundice -Unexplained jaundice/direct hyperbilirubinemia -Coagulopathy -Hepatomegaly -Chronic anemia Plan: -Suspect acute hepatocellular dysfunction given findings on clinical exam/blood work -Unclear etiology at this time with broad differential - R/O autoimmune hepatitis, Renato disease, A1AT deficiency, Amyloidosis, Budd-Chiari syndrome, HSV/CMV/EBV infection, occult malignancy; lab work submitted for evaluation -Viral hepatitis serologies negative -Denies any toxic ingestion, new medications, supplements -Salicylates, acetaminophen and EtOH unremarkable -CT and U/S reviewed, awaiting reports - hepatosplenomegaly and liver lesion noted on my interpretation -Check CT abdomen triple phase - evaluate portal and hepatic veins, eval liver lesion and parenchyma -Continue supportive care, avoid hepatotoxic medications -If no improvement in condition, worsening LFTs can consider liver biopsy -Given abnormal findings including INR >1.5, closely watch patient for alteration in mentation, abdominal pain given concern for development of acute liver failure which would require urgent transfer to a transplant center -Diet as tolerated - Date & Time Date: 02/04/18 Time: 06:30 <Kieran Mcdonald - Last Filed: 02/04/18 18:41> Meds - Medications Medications: Current Medications Ferrous Gluconate (Fergon) 324 mg PO DAILY COUNTS INCLUDE 234 BEDS AT THE [facility] Last Admin: 02/04/18 10:55 Dose: 324 mg Sodium Chloride (Sodium Chloride 0.9%) 1,000 mls @ 100 mls/hr IV .Q10H COUNTS INCLUDE 234 BEDS AT THE [facility] Last Admin: 02/04/18 17:36 Dose: 100 mls/hr Piperacillin Sod/Tazobactam Sod (Zosyn 3.375 In Ns 100ml) 100 mls @ 200 mls/hr IVPB Q6 VIJAYA PRN Reason: Protocol Stop: 02/11/18 12:01 Last Admin: 02/04/18 17:37 Dose: 200 mls/hr Ibuprofen (Motrin Tab) 400 mg PO Q6H PRN PRN Reason: Fever >100.4 F Multivitamins (Thera Tab) 1 tab PO DAILY COUNTS INCLUDE 234 BEDS AT THE [facility] Last Admin: 02/04/18 10:55 Dose: 1 tab Pantoprazole Sodium (Protonix Inj) 40 mg IVP DAILY COUNTS INCLUDE 234 BEDS AT THE [facility] Last Admin: 02/04/18 10:55 Dose: 40 mg Results - Vital Signs Recent Vital Signs: Last Vital Signs Temp 97.8 F 02/04/18 18:00 Pulse 94 H 02/04/18 18:00 Resp 18 02/04/18 18:00 BP 120/72 02/04/18 18:00 Pulse Ox 99 02/04/18 18:00 - Labs Result Diagrams: 02/04/18 06:30 02/04/18 06:30 Labs: Laboratory Results - last 24 hr 02/03/18 02/04/18 02/04/18 21:00 06:30 06:30 WBC 10.7 D RBC 2.84 L Hgb 9.4 L Hct 28.7 L MCV 101.1 MCH 33.1 MCHC 32.8 RDW 18.4 H Plt Count 310 MPV 10.0 Gran % 84.6 H Lymph % (Auto) 6.5 L [place] % (Auto) 7.2 H Eos % (Auto) 1.2 L Baso % (Auto) 0.5 Gran # 9.07 H Lymph # (Auto) 0.7 L [place] # (Auto) 0.8 H Eos # (Auto) 0.1 Baso # (Auto) 0.05 PT INR pO2 105 H VBG pH 7.39 VBG pCO2 36.0 L VBG HCO3 21.8 VBG Total CO2 22.9 VBG O2 Sat (Calc) 99.5 H VBG Base Excess -2.6 L VBG Potassium 3.5 L Sodium 134.0 Chloride 105.0 Glucose 99 Lactate 0.9 FiO2 21.0 Potassium Carbon Dioxide Anion Gap BUN Creatinine Est GFR ( Amer) Est GFR (Non-Af Amer) Random Glucose Calcium Ferritin Total Bilirubin GGT AST ALT Alkaline Phosphatase Total Protein Albumin Globulin Albumin/Globulin Ratio Venous Blood Potassium 3.5 L IgG 939.8 IgM 90.8 02/04/18 02/04/18 02/04/18 06:30 06:30 06:30 WBC RBC Hgb Hct MCV MCH MCHC RDW Plt Count MPV Gran % Lymph % (Auto) [place] % (Auto) Eos % (Auto) Baso % (Auto) Gran # Lymph # (Auto) [place] # (Auto) Eos # (Auto) Baso # (Auto) PT 22.9 H INR 1.96 H pO2 VBG pH VBG pCO2 VBG HCO3 VBG Total CO2 VBG O2 Sat (Calc) VBG Base Excess VBG Potassium Sodium 141 Chloride 106 Glucose Lactate FiO2 Potassium 3.3 L Carbon Dioxide 23 Anion Gap 15 BUN 4 L Creatinine 0.5 L Est GFR ( Amer) > 60 Est GFR (Non-Af Amer) > 60 Random Glucose 88 Calcium 8.1 L Ferritin 25.9 Total Bilirubin 16.2 H GGT AST 124 H ALT 36 Alkaline Phosphatase 141 H Total Protein 6.3 Albumin 2.9 L Globulin 3.4 Albumin/Globulin Ratio 0.8 L Venous Blood Potassium IgG IgM 02/04/18 07:00 WBC RBC Hgb Hct MCV MCH MCHC RDW Plt Count MPV Gran % Lymph % (Auto) [place] % (Auto) Eos % (Auto) Baso % (Auto) Gran # Lymph # (Auto) [place] # (Auto) Eos # (Auto) Baso # (Auto) PT INR pO2 VBG pH VBG pCO2 VBG HCO3 VBG Total CO2 VBG O2 Sat (Calc) VBG Base Excess VBG Potassium Sodium Chloride Glucose Lactate FiO2 Potassium Carbon Dioxide Anion Gap BUN Creatinine Est GFR ( Amer) Est GFR (Non-Af Amer) Random Glucose Calcium Ferritin Total Bilirubin GGT 256 H AST ALT Alkaline Phosphatase Total Protein Albumin Globulin Albumin/Globulin Ratio Venous Blood Potassium IgG IgM Attending/Attestation - Attestation I have personally seen and examined this patient.: Yes I have fully participated in the care of the patient.: Yes I have reviewed all pertinent clinical information: Yes Notes (Text): 02/04/18 18:39 27 year old female with h/o SAMUEL a/w jaundice. No obvious etiology. No drug or etoh history. No family history of liver disease. Viral hepatitis negative. Recommend triple phase CT to eval liver lesion and eval liver vascularture (r/o budd chiari). Recommend HSV,CMV, EBV eval. Autoimmune serologies, ceruloplasmin , A1At phenotype. Consider referral to [facility] if no improvement. Consider liver biopsy depending on eval. Diet as tolerated. Will follow.
[2018-02-04] MEDS ORDERED: Potassium Chloride 20 mEq ER Tab PO ONE (09:01)
[2018-02-04] MEDS ORDERED: MULTIVITAMIN PO SCH (10:00)
[2018-02-04] MEDS ORDERED: FERROUS GLUCONATE PO SCH (10:00)
[2018-02-04] MEDS: Multivitamin Therapeutic Tab PO SCH (10:55)
--- NOTE | 2018-02-04 12:04 | CP.PCM.PN ---
<Keerthi Chen - Last Filed: 02/04/18 15:07> Subjective - Date & Time of Evaluation Date of Evaluation: 02/04/18 Time of Evaluation: 08:40 - Subjective Subjective: Progress note for hospitalist service. Patient with no overnight acute events. Fever has resolved. Patient with no complaints other than jaundice. Denies cp, sob, no abdominal pain, no nausea or diarrhea. Objective - Vital Signs/Intake and Output Vital Signs (last 24 hours): Temp Pulse Resp BP Pulse Ox 97.8 F 76 18 102/62 98 02/04/18 12:00 02/04/18 12:00 02/04/18 12:00 02/04/18 12:00 02/04/18 05:50 Intake and Output: 02/04/18 02/04/18 06:59 18:59 Intake Total 120 1400 Balance 120 1400 - Medications Medications: Current Medications Ferrous Gluconate (Fergon) 324 mg PO DAILY [facility] Last Admin: 02/04/18 10:55 Dose: 324 mg Sodium Chloride (Sodium Chloride 0.9%) 1,000 mls @ 100 mls/hr IV .Q10H VIJAYA Last Admin: 02/04/18 06:03 Dose: 100 mls/hr Piperacillin Sod/Tazobactam Sod (Zosyn 3.375 In Ns 100ml) 100 mls @ 200 mls/hr IVPB Q6 VIJAYA PRN Reason: Protocol Stop: 02/11/18 12:01 Ibuprofen (Motrin Tab) 400 mg PO Q6H PRN PRN Reason: Fever >100.4 F Multivitamins (Thera Tab) 1 tab PO DAILY [facility] Last Admin: 02/04/18 10:55 Dose: 1 tab Pantoprazole Sodium (Protonix Inj) 40 mg IVP DAILY [facility] Last Admin: 02/04/18 10:55 Dose: 40 mg - Labs Labs: 02/04/18 06:30 02/04/18 06:30 PT 22.9 SECONDS (9.4-12.5) H 02/04/18 06:30 INR 1.96 (0.93-1.08) H 02/04/18 06:30 APTT 40.2 Seconds (25.1-36.5) H 02/03/18 16:40 - Constitutional Appears: No Acute Distress, Older Than Stated Age - Head Exam Head Exam: ATRAUMATIC, NORMAL INSPECTION, NORMOCEPHALIC - Eye Exam Eye Exam: EOMI, PERRL, Scleral icterus Pupil Exam: NORMAL ACCOMODATION - ENT Exam ENT Exam: Mucous Membranes Moist - Neck Exam Neck Exam: Normal Inspection - Respiratory Exam Respiratory Exam: Clear to Ausculation Bilateral, NORMAL BREATHING PATTERN. absent: Rales, Rhonchi, Wheezes, Respiratory Distress, Stridor - Cardiovascular Exam Cardiovascular Exam: REGULAR RHYTHM, RRR, +S1, +S2. absent: Bradycardia, Tachycardia - GI/Abdominal Exam GI & Abdominal Exam: Soft, Normal Bowel Sounds, Organomegaly. absent: Distended , Firm, Guarding, Rigid, Tenderness, Rebound Additional comments: + obese abdomen - Extremities Exam Extremities Exam: Normal Inspection - Back Exam Back Exam: NORMAL INSPECTION - Neurological Exam Neurological Exam: Alert, Awake, Oriented x3 - Psychiatric Exam Psychiatric exam: Normal Affect, Normal Mood - Skin Skin Exam: Dry, Intact, Warm Additional comments: + jaundice. Assessment and Plan - Assessment and Plan (Free Text) Assessment: Patient is a 27 y/o with PMHx of pancreatitis, hypertriglycemia, and anemia who presented with jaundice for 10 days, admitted with painless jaundice and fever found to have hepatomegaly and a foci on CT. Plan: 1. Painless jaundice with direct hyperbilirubinemia - In the setting of fever - T bili trended down - hep panel negative, r/o autoimmune process, r/o maliganancy - Gi saw patient, triple phase CT ordered - autoimmune work up sent including alpha 1 antitrypcin, lupus, lexi's, cmv, hiv, hsv, AH, electrophoresis for amyloidosis and BPC. - AFP and ca 19-9 sent. - Tylenol, and urine drug screen negative. deneid h/o alcohol. - CT with hepatomegaly, supralateral right lobe liver with 3 cm x 2.4 cm foci likely hemangioma. - Abdominal U/S with hepatomegaly, splenomegaly, no acute sury noted, no stones. - Blood cultures and urine cultures sent - Continue with iv hydration. 2) SIRS r/o sepsis - - chest x-ray normal, ua with no uti. - ID consulted - cultures sent - on zosyn pending cultures 3) Coagulopathy- - INR 1.96 likely due to hepatomegaly - No signs of bleeding will monito for now. 4) h/o iron deficiency anemia - slight drop in hgb from 10.5 to 9.4, - anemia work up sent, - no signs of iron overload - will continue po iron at home dose 5) Hx of Hypertriglyceridemia - triglyceride of 459 - can't start lipid lowering drugs at this time due to acute transaminitis 6) Hypokalemia- will replete and continue to monitor. 7) DVT and gi prophyalxis: VTe device and protonix. Patient seen, examined and case discussed with Dr Bartholomew. <Evelyn Bartholomew - Last Filed: 02/04/18 16:02> Objective - Vital Signs/Intake and Output Vital Signs (last 24 hours): Temp Pulse Resp BP Pulse Ox 97.8 F 76 18 102/62 98 02/04/18 12:00 02/04/18 14:00 02/04/18 12:00 02/04/18 12:00 02/04/18 05:50 Intake and Output: 02/04/18 02/04/18 06:59 18:59 Intake Total 120 1520 Output Total 300 Balance 120 1220 - Medications Medications: Current Medications Ferrous Gluconate (Fergon) 324 mg PO DAILY [facility] Last Admin: 02/04/18 10:55 Dose: 324 mg Sodium Chloride (Sodium Chloride 0.9%) 1,000 mls @ 100 mls/hr IV .Q10H [facility] Last Admin: 02/04/18 06:03 Dose: 100 mls/hr Piperacillin Sod/Tazobactam Sod (Zosyn 3.375 In Ns 100ml) 100 mls @ 200 mls/hr IVPB Q6 VIJAYA PRN Reason: Protocol Stop: 02/11/18 12:01 Last Admin: 02/04/18 12:54 Dose: 200 mls/hr Ibuprofen (Motrin Tab) 400 mg PO Q6H PRN PRN Reason: Fever >100.4 F Multivitamins (Thera Tab) 1 tab PO DAILY [facility] Last Admin: 02/04/18 10:55 Dose: 1 tab Pantoprazole Sodium (Protonix Inj) 40 mg IVP DAILY [facility] Last Admin: 02/04/18 10:55 Dose: 40 mg Potassium Chloride (K-Dur 20 Meq Er Tab) 40 meq PO Q3 VIJAYA Stop: 02/04/18 18:01 Last Admin: 02/04/18 15:28 Dose: Not Given - Labs Labs: 02/04/18 06:30 02/04/18 06:30 PT 22.9 SECONDS (9.4-12.5) H 02/04/18 06:30 INR 1.96 (0.93-1.08) H 02/04/18 06:30 APTT 40.2 Seconds (25.1-36.5) H 02/03/18 16:40 Attending/Attestation - Attestation I have personally seen and examined this patient.: Yes I have fully participated in the care of the patient.: Yes I have reviewed all pertinent clinical information, including history, physical exam and plan: Yes Notes (Text): 02/04/18 15:57 27 year old female with past medical history of pancreatitis, hypertriglyceridemia and anemia who presented with painless jaundice and fever. Found to have SIRS, hyperbilirubinemia and hepatomegaly/splenomegaly on imaging. GI evaluation was appreciated. Triple phase CT is ordered in addition to autoimmune workup as above. She is empirically started on zosyn while awaiting cultures. ID is following as well. Will replete and repeat lytes. Evelyn Bartholomew MD Hospitalist.
[2018-02-04 12:18] LABS: IMMUNOGLOBULIN G 939.8 mg/dL (700.0-1600.0); IMMUNOGLOBULIN M 90.8 mg/dL (40.0-230.0)
[2018-02-04 13:18] LABS: FOLATE 6.9 ng/mL
--- NOTE | 2018-02-04 13:29 | CP.PCM.CON ---
History of Present Illness - History of Present Illness History of Present Illness: 27 year old female with PMH of pancreatitis, hypertriglyceridemia, obesity with BMI 32, chronic anemia [place] [facility] [place] of yellowing of skin which has been progressing for the past 10 days. She denies fever or chills, no nausea or vomiting but occasional abdominal discomfort, no cough or colds, no sore throat, no diarrhea, no dysuria, no hematuria. She also denies easy bruisability. She has occasional menorrhagia. She traveled to [place] in August 2017 but did not fall ill there or even after coming back. She denies animal contacts or being bitten by insects or ticks. She has also not traveled to wooded areas. Infectious Diseases consult is requested to further evaluate and manage. Review of Systems - Review of Systems All systems: reviewed and no additional remarkable complaints except (as per HPI ) Past Patient History - Infectious Disease Hx of Infectious Diseases: None - Past Social History Smoking Status: Never Smoked - CARDIAC Hx Cardiac Disorders: Yes Hx Hypercholesterolemia: Yes - PULMONARY Hx Respiratory Disorders: No - NEUROLOGICAL Hx Neurological Disorder: No - HEENT Hx HEENT Problems: No - RENAL Hx Chronic Kidney Disease: No - ENDOCRINE/METABOLIC Hx Endocrine Disorders: No - HEMATOLOGICAL/ONCOLOGICAL Hx Blood Disorders: Yes Hx Anemia: Yes - INTEGUMENTARY Hx Dermatological Problems: No - MUSCULOSKELETAL/RHEUMATOLOGICAL Hx Musculoskeletal Disorders: No Hx Falls: No - GASTROINTESTINAL Hx Gastrointestinal Disorders: Yes Hx Pancreatitis: Yes - GENITOURINARY/GYNECOLOGICAL Hx Genitourinary Disorders: Yes Other/Comment: IRREGULAR PERIOD - PSYCHIATRIC Hx Psychophysiologic Disorder: No Hx Substance Use: No - SURGICAL HISTORY Hx Surgeries: Yes Other/Comment: - ANESTHESIA Hx Anesthesia Reactions: No Hx Malignant Hyperthermia: No Meds Allergies/Adverse Reactions: Allergies Allergy/AdvReac Type Severity Reaction Status Date / Time No Known Allergies Allergy Verified 02/03/18 15:50 - Medications Medications: Current Medications Ferrous Gluconate (Fergon) 324 mg PO DAILY [facility]A Sodium Chloride (Sodium Chloride 0.9%) 1,000 mls @ 100 mls/hr IV .Q10H [facility] Last Admin: 02/04/18 06:03 Dose: 100 mls/hr Metronidazole (Flagyl) 500 mg in 100 mls @ 100 mls/hr IVPB Q8 VIJAYA PRN Reason: Protocol Last Admin: 02/04/18 05:11 Dose: 100 mls/hr Piperacillin Sod/Tazobactam Sod (Zosyn 3.375 In Ns 100ml) 100 mls @ 200 mls/hr IVPB Q6 VIJAYA PRN Reason: Protocol Stop: 02/11/18 12:01 Ibuprofen (Motrin Tab) 400 mg PO Q6H PRN PRN Reason: Fever >100.4 F Multivitamins (Thera Tab) 1 tab PO DAILY [facility]AYA Pantoprazole Sodium (Protonix Inj) 40 mg IVP DAILY [facility]A Physical Exam - Constitutional Appears: Non-toxic, Chronically Ill - Head Exam Head Exam: NORMAL INSPECTION - Eye Exam Eye Exam: Scleral icterus - ENT Exam ENT Exam: Mucous Membranes Moist - Neck Exam Neck exam: Negative for: Meningismus - Respiratory Exam Respiratory Exam: Decreased Breath Sounds. absent: Rales - Cardiovascular Exam Cardiovascular Exam: +S1, +S2 - GI/Abdominal Exam GI & Abdominal Exam: Soft. absent: Tenderness - Skin Additional comments: generalized jaundice Results - Vital Signs Recent Vital Signs: Last Vital Signs Temp 98.1 F 02/04/18 05:50 Pulse 70 02/04/18 05:57 Resp 18 02/04/18 05:50 BP 99/52 L 02/04/18 05:50 Pulse Ox 98 02/04/18 05:50 - Labs Result Diagrams: 02/04/18 06:30 02/04/18 06:30 Labs: Laboratory Results - last 24 hr 02/03/18 02/04/18 02/04/18 21:00 06:30 06:30 WBC 10.7 D RBC 2.84 L Hgb 9.4 L Hct 28.7 L MCV 101.1 MCH 33.1 MCHC 32.8 RDW 18.4 H Plt Count 310 MPV 10.0 Gran % 84.6 H Lymph % (Auto) 6.5 L [place] % (Auto) 7.2 H Eos % (Auto) 1.2 L Baso % (Auto) 0.5 Gran # 9.07 H Lymph # (Auto) 0.7 L [place] # (Auto) 0.8 H Eos # (Auto) 0.1 Baso # (Auto) 0.05 PT INR pO2 105 H VBG pH 7.39 VBG pCO2 36.0 L VBG HCO3 21.8 VBG Total CO2 22.9 VBG O2 Sat (Calc) 99.5 H VBG Base Excess -2.6 L VBG Potassium 3.5 L Sodium 134.0 141 Chloride 105.0 106 Glucose 99 Lactate 0.9 FiO2 21.0 Potassium 3.3 L Carbon Dioxide 23 Anion Gap 15 BUN 4 L Creatinine 0.5 L Est GFR ( Amer) > 60 Est GFR (Non-Af Amer) > 60 Random Glucose 88 Calcium 8.1 L Total Bilirubin 16.2 H AST 124 H ALT 36 Alkaline Phosphatase 141 H Total Protein 6.3 Albumin 2.9 L Globulin 3.4 Albumin/Globulin Ratio 0.8 L Venous Blood Potassium 3.5 L 02/04/18 06:30 WBC RBC Hgb Hct MCV MCH MCHC RDW Plt Count MPV Gran % Lymph % (Auto) [place] % (Auto) Eos % (Auto) Baso % (Auto) Gran # Lymph # (Auto) [place] # (Auto) Eos # (Auto) Baso # (Auto) PT 22.9 H INR 1.96 H pO2 VBG pH VBG pCO2 VBG HCO3 VBG Total CO2 VBG O2 Sat (Calc) VBG Base Excess VBG Potassium Sodium Chloride Glucose Lactate FiO2 Potassium Carbon Dioxide Anion Gap BUN Creatinine Est GFR ( Amer) Est GFR (Non-Af Amer) Random Glucose Calcium Total Bilirubin AST ALT Alkaline Phosphatase Total Protein Albumin Globulin Albumin/Globulin Ratio Venous Blood Potassium Assessment & Plan - Assessment and Plan (Free Text) Plan: Assessment Painless direct hyperbilirubinemia, consider obstructive jaundice R/O hepatitis pancreatitis hypertriglyceridemia obesity with BMI 32 chronic anemia Plan Follow up CT A/P; will also follow up blood cx, HIV test, viral hepatitis profile, CMV, EBV, HSV tests; may also need other tests for autoimmune hepatitis such as Renato's disease follow up GI recommendations will monitor clinically started Zosyn for now
--- NOTE | 2018-02-04 13:46 | CARD ---
APPROVED REPORT EKG Measurement Heart [id number] <Conclusion> Normal sinus rhythm Cannot rule out Anterior infarct, age undetermined Abnormal ECG
--- NOTE | 2018-02-04 13:48 | CT ---
PROCEDURE: CT abdomen pelvis 02/03/2018 HISTORY: COMPARISON: None. TECHNIQUE: Contiguous helical/ transaxial sections of the abdomen pelvis performed following intravenous injection of approximately 93 cc Omnipaque 350 contrast material. Additional 2D sagittal and coronal reformats provided. Radiation dose: Total exam DLP = 824.7 mGy-cm. This CT exam was performed using one or more of the following dose reduction techniques: Automated exposure control, adjustment of the mA and/or kV according to patient size, and/or use of iterative reconstruction technique. FINDINGS: LOWER THORAX: Right basilar subsegmental atelectasis with some scarring changes right middle lobe region. . No effusion or basilar pneumothorax. LIVER: Liver is massively enlarged measuring nearly 32 cm in CC dimension. Liver demonstrates significant diffuse homogeneous low-attenuation consistent with fatty infiltration however other infiltrative hepatic cellular disease process not excluded. There is a somewhat elliptical -wedge shaped area of low attenuation in the superolateral aspect right lobe liver bordering diaphragm. This focus measures approximately 3 cm x 2.4 cm however smaller low-attenuation foci surrounding the medial aspect of the all lesions all are also noted. . This focus is of uncertain etiology though could represent a hemangioma. . Followup triple phase CT scan of the liver could be performed for further evaluation. GALLBLADDER AND BILE DUCTS: Pericholecystic fluid is present. No obvious intraluminal gallbladder calculi. Mild enhancement gallbladder wall. Rule out acalculous cholecystitis. PANCREAS: Pancreas appears slightly atrophic. No obvious pancreatic masses or collections. SPLEEN: Spleen is mildly enlarged measuring 13 cm in AP dimension. ADRENALS: Unremarkable. No mass. KIDNEYS AND URETERS: Unremarkable. No hydronephrosis. No solid mass. VASCULATURE: Unremarkable. No aortic aneurysm. BOWEL: Evaluation of the bowel is limited due to the lack of oral contrast material. Stomach is incompletely distended. Visualized loops of small bowel exhibit normal contour and caliber of note to contain fluid. Rule out mild enteritis. Small amount of stool is seen within the cecum, ascending and transverse colon however the remaining colon is relatively collapsed. APPENDIX: Normal appendix. PERITONEUM: Unremarkable. No free fluid. No free air. Small fat containing umbilical hernia. LYMPH NODES: Multiple small nonspecific retroperitoneal lymph nodes. BLADDER: Unremarkable. REPRODUCTIVE: Unremarkable. BONES: Osseous structures intact. OTHER FINDINGS: None. IMPRESSION: Massively enlarged liver exhibiting significant low attenuation consistent with fatty infiltration however other infiltrative hepatocellular disease process not excluded. Splenomegaly. The gallbladder appears incompletely distended of with mild enhancement of the gallbladder wall and a small amount of pericholecystic fluid. Clinical correlation recommended to rule out acalculous cholecystitis. Followup gallbladder ultrasound recommended. Multiple on fluid-filled loops of nondistended small bowel. Rule out enteritis.
[2018-02-04] MEDS ORDERED: Potassium Chloride 20 mEq ER Tab PO SCH (15:00)
[2018-02-04] MEDS: Potassium Chloride 20 mEq ER Tab PO SCH ×2 (15:28→17:37)
--- NOTE | 2018-02-04 18:04 | US ---
HISTORY: Jaundice COMPARISON: None. TECHNIQUE: Sonographic evaluation of the abdomen. FINDINGS: LIVER: Enlarged measuring 26 cm in CC dimension. Smooth contour though increased echotexture consistent with fatty infiltration. Other infiltrative hepatocellular disease process not excluded. No obvious hepatic masses or collections seen on images presented GALLBLADDER: No gallstones. . . Gallbladder wall is somewhat thickened and/or edematous measuring 4.5 mm. Pericholecystic fluid felt be present. . Findings could be due to incomplete distention/contraction secondary to nonfasting state however rule out acalculous cholecystitis. . COMMON BILE DUCT: To vanessa Measures 3.0 mm. No stones. No dilatation. PANCREAS: Unremarkable as visualized. No mass. No ductal dilatation. RIGHT KIDNEY: Measures 13.0 x 5.1 x 6.4cm. Normal echogenicity. No calculus, mass, or hydronephrosis. LEFT KIDNEY: Measures 13.1 x 6.0 x 4.7cm. Normal echogenicity. No calculus, mass, or hydronephrosis. SPLEEN: Spleen is enlarged. AORTA: No aneurysmal dilatation. IVC: Unremarkable. OTHER FINDINGS: None. IMPRESSION: Hepatosplenomegaly. Of gallbladder with appears incompletely distended/ contracted possibly due to nonfasting state however given given the small amount of pericholecystic fluid a calculus cholecystitis should be excluded. .
[2018-02-05] MEDS: Sodium Chloride 0.9% 1,000 ML IV SCH ×2 (03:06→12:45)
[2018-02-05] MEDS: Piperacillin/Tazobact 3.375 gm 100 ML IVPB SCH ×4 (05:24→23:15)
[2018-02-05] MEDS: Pantoprazole 40 mg EC Tab PO SCH (06:47)
[2018-02-05 07:28] LABS: BASO # 0.08 K/mm3 (0.0-2.0); BASO % 0.6 % (0.0-3.0); EOS # 0.2 (0.0-0.7); EOS % 1.1 % (1.5-5.0); GRAN # 11.75 (1.4-6.5); HEMOGLOBIN 9.2 g/dL (12.0-16.0); LYMPH # 1.2 (1.2-3.4); LYMPH % 8.5 % (22.0-35.0); MEAN CELL VOLUME 101.4 fl (80.0-105.0); MEAN CORPUSCULAR HEMOGLOBIN 33.3 pg (25.0-35.0); MEAN CORPUSCULAR HGB CONC 32.9 g/dl (31.0-37.0); MEAN PLATELET VOLUME 9.9 fl (7.0-11.0); MONO % 6.8 % (1.0-6.0); RBC 2.76 10^6/uL (3.5-6.1); RED CELL DISTRIBUTION WIDTH 18.7 % (11.5-14.5); WHITE BLOOD COUNT 14.1 10^3/ul (4.5-11.0)
[2018-02-05 07:36] LABS: ALB/GLOB RATIO 0.8 (1.1-1.8); ALBUMIN 2.5 g/dL (3.0-4.8); ALT/SGPT 34 U/L (7-56); AST/SGOT 125 U/L (14-36); BLOOD UREA NITROGEN 3 mg/dL (7-21); CALCIUM 7.9 mg/dL (8.4-10.5); GFR NON-AFRICAN AMERICAN > 60
[2018-02-05] MEDS: Multivitamin Therapeutic Tab PO SCH (09:11)
--- NOTE | 2018-02-05 12:04 | CP.PCM.DIS ---
<Rayne Diaz - Last Filed: 02/06/18 12:38> Provider - Provider Date of Admission: 02/03/18 20:01 Attending physician: Jenny Jenkins MD Consults: GI: Heladio ID: [id number] Surgery: Esthela Time Spent in preparation of Discharge (in minutes): 35 Hospital Course - Lab Results Lab Results: Most Recent Lab Values WBC 14.1 10^3/ul (4.5-11.0) H D 02/05/18 06:44 RBC 2.76 10^6/uL (3.5-6.1) L 02/05/18 06:44 Hgb 9.2 g/dL (12.0-16.0) L 02/05/18 06:44 Hct 28.0 % (36.0-48.0) L 02/05/18 06:44 MCV 101.4 fl (80.0-105.0) 02/05/18 06:44 MCH 33.3 pg (25.0-35.0) 02/05/18 06:44 MCHC 32.9 g/dl (31.0-37.0) 02/05/18 06:44 RDW 18.7 % (11.5-14.5) H 02/05/18 06:44 Plt Count 332 10^3/uL (120.0-450.0) 02/05/18 06:44 MPV 9.9 fl (7.0-11.0) 02/05/18 06:44 Gran % 83.0 % (50.0-68.0) H 02/05/18 06:44 Lymph % (Auto) 8.5 % (22.0-35.0) L 02/05/18 06:44 [place] % (Auto) 6.8 % (1.0-6.0) H 02/05/18 06:44 Eos % (Auto) 1.1 % (1.5-5.0) L 02/05/18 06:44 Baso % (Auto) 0.6 % (0.0-3.0) 02/05/18 06:44 Gran # 11.75 (1.4-6.5) H 02/05/18 06:44 Lymph # (Auto) 1.2 (1.2-3.4) 02/05/18 06:44 [place] # (Auto) 1.0 (0.1-0.6) H 02/05/18 06:44 Eos # (Auto) 0.2 (0.0-0.7) 02/05/18 06:44 Baso # (Auto) 0.08 K/mm3 (0.0-2.0) 02/05/18 06:44 PT 22.9 SECONDS (9.4-12.5) H 02/04/18 06:30 INR 1.96 (0.93-1.08) H 02/04/18 06:30 APTT 40.2 Seconds (25.1-36.5) H 02/03/18 16:40 pO2 105 mm/Hg (30-55) H 02/03/18 21:00 VBG pH 7.39 (7.32-7.43) 02/03/18 21:00 VBG pCO2 36.0 (40-60) L 02/03/18 21:00 VBG HCO3 21.8 mmol/l (21-28) 02/03/18 21:00 VBG Total CO2 22.9 mmol.L (22-28) 02/03/18 21:00 VBG O2 Sat (Calc) 99.5 % (40-65) H 02/03/18 21:00 VBG Base Excess -2.6 mmol/L (0.0-2.0) L 02/03/18 21:00 VBG Potassium 3.5 mmol/L (3.6-5.2) L 02/03/18 21:00 Sodium 134.0 mmol/L (132-148) 02/03/18 21:00 Chloride 105.0 mmol/L (98-107) 02/03/18 21:00 Glucose 99 mg/dl (65-105) 02/03/18 21:00 Lactate 0.9 mmol/L (0.7-2.1) 02/03/18 21:00 FiO2 21.0 % 02/03/18 21:00 Sodium 136 mmol/L (132-148) 02/05/18 06:44 Potassium 4.0 mmol/L (3.6-5.0) 02/05/18 06:44 Chloride 107 mmol/L (98-107) 06/25/18 06:44 Carbon Dioxide 21 mmol/L (21-33) 02/05/18 06:44 Anion Gap 13 (10-20) 02/05/18 06:44 BUN 3 mg/dL (7-21) L 02/05/18 06:44 Creatinine 0.5 mg/dl (0.7-1.2) L 02/05/18 06:44 Est GFR ( Amer) > 60 02/05/18 06:44 Est GFR (Non-Af Amer) > 60 02/05/18 06:44 Random Glucose 92 mg/dL (70-110) 02/05/18 06:44 Calcium 7.9 mg/dL (8.4-10.5) L 02/05/18 06:44 Magnesium 1.9 mg/dL (1.7-2.2) 02/03/18 16:40 Iron 55 ug/dL (45-180) 02/03/18 16:40 TIBC 367 ug/dL (265-497) 02/03/18 16:40 % Saturation 15 % (20-55) L 02/03/18 16:40 Transferrin 230.94 mg/dL (206-381) 02/03/18 16:40 Ferritin 25.9 ng/mL 02/04/18 06:30 Total Bilirubin 14.7 mg/dL (0.2-1.3) H 02/05/18 06:44 Direct Bilirubin 13.0 mg/dL (0.0-0.4) H 02/05/18 06:44 GGT 256 U/L (8-78) H 02/04/18 07:00 AST 125 U/L (14-36) H 02/05/18 06:44 ALT 34 U/L (7-56) 02/05/18 06:44 Alkaline Phosphatase 119 U/L (38-126) 02/05/18 06:44 Ammonia 24 umol/L (9-33) 02/03/18 17:55 Total Protein 5.6 g/dL (5.8-8.3) L 02/05/18 06:44 Albumin 2.5 g/dL (3.0-4.8) L 02/05/18 06:44 Globulin 3.1 gm/dL 02/05/18 06:44 Albumin/Globulin Ratio 0.8 (1.1-1.8) L 02/05/18 06:44 Triglycerides 459 mg/dL (35-160) H 02/03/18 18:00 Cholesterol 134 mg/dL (130-200) 02/03/18 18:00 LDL Cholesterol Direct 65 mg/dL (0-129) 02/03/18 18:00 HDL Cholesterol 12 mg/dL (29-60) L 02/03/18 18:00 Lipase < 10 U/L (23-300) L 02/03/18 16:40 Alpha Fetoprotein 2.1 ng/mL (0.0-7.5) 02/03/18 18:00 CA 19-9 Antigen 19.4 U/mL (0-37) 02/03/18 18:00 Vitamin B12 891 pg/mL (239-931) 02/03/18 18:00 Folate 6.9 ng/mL 02/03/18 18:00 Venous Blood Potassium 3.5 mmol/L (3.6-5.2) L 02/03/18 21:00 Urine Color Yellow (YELLOW) 02/03/18 16:50 Urine Appearance Clear (CLEAR) 02/03/18 16:50 Urine pH 6.5 (4.7-8.0) 02/03/18 16:50 Ur Specific [place] <= 1.005 (1.005-1.035) 02/03/18 16:50 Urine Protein Negative mg/dL (<30 mg/dL) 02/03/18 16:50 Urine Glucose (UA) Negative mg/dL (NEGATIVE) 02/03/18 16:50 Urine Ketones Negative mg/dL (NEGATIVE) 02/03/18 16:50 Urine Blood Trace-intact (NEGATIVE) H 02/03/18 16:50 Urine Nitrate Negative (NEGATIVE) 02/03/18 16:50 Urine Bilirubin Negative (NEGATIVE) 02/03/18 16:50 Urine Urobilinogen 0.2 E.U./dL (<1 E.U./dL) 02/03/18 16:50 Ur Leukocyte Esterase Negative Malcolm/uL (NEGATIVE) 02/03/18 16:50 Urine RBC 0 - 2 /hpf (0-2) 02/03/18 16:50 Urine WBC 1 - 3 /hpf (0-6) 02/03/18 16:50 Ur Epithelial Cells 1 - 3 /hpf (0-5) 02/03/18 16:50 Urine Bacteria Few (NEG) 02/03/18 16:50 Salicylates < 1 mg/dL (2.0-20.0) L 02/03/18 16:40 Urine Opiates Screen Negative (NEGATIVE) 02/03/18 17:55 Urine Methadone Screen Negative (NEGATIVE) 02/03/18 17:55 Acetaminophen < 10.0 ug/ml (10.0-20.0) L 02/03/18 18:00 Ur Barbiturates Screen Negative (NEGATIVE) 02/03/18 17:55 Ur Phencyclidine Scrn Negative (NEGATIVE) 02/03/18 17:55 Ur Amphetamines Screen Negative (NEGATIVE) 02/03/18 17:55 U Benzodiazepines Scrn Negative (NEGATIVE) 02/03/18 17:55 U Oth Cocaine Metabols Negative (NEGATIVE) 02/03/18 17:55 U Cannabinoids Screen Negative (NEGATIVE) 02/03/18 17:55 Alcohol, Quantitative < 10 mg/dL (0-10) 02/03/18 16:40 IgG 939.8 mg/dL (700.0-1600.0) 02/04/18 06:30 IgM 90.8 mg/dL (40.0-230.0) 02/04/18 06:30 EBV Capsid Ag IgM Ab <36.00 U/mL 02/04/18 06:30 Hepatitis A IgM Ab Negative (NEGATIVE) 02/03/18 16:40 Hep Bs Antigen Negative (NEGATIVE) 02/03/18 16:40 Hep B Core IgM Ab Negative (NEGATIVE) 02/03/18 16:40 Hepatitis C Antibody Negative (NEGATIVE) 02/03/18 16:40 Infectious [place] Assay Negative (NEGATIVE) 02/03/18 16:40 Grp A Beta Strep Ag Negative (NEGATIVE) 02/03/18 16:50 - Hospital Course Hospital Course: HPI: This is a 27yo F with past medical history of pancreatitis, hypertriglycemia, and anemia who came to ED for yellowing of skin and fatigue x 10 days. Patient reports that she noticed that her skin started to get yellow over the past few days. She denies having any symptoms such as abdominal pain, nausea/vomiting/diarrhea, constipation, fever/chills, dysuria/hematuria, numbness/tingling, chest pain or shortness of breath. She states that sometimes after she eats, she feels that her stomach feels distended. She denies recent travel, tylenol or alcohol use. She went to [place] in August 2017, but has not traveled since. Patient seen an outpatient clinic for her anemia. She denies uterine bleeding and takes Iron pills at home. She had pancreatitis at last admission. CBD was normal. Hospital Course: Patient was admitted to the hospital for painless jaundice. Patient found to elevated t bili and d bili. with transamintis. GI was on consult. Abdominal US showed hepatomegaly, gallbladder appears incompletely distended/contracted, small amount of pericholecystic fluid. CT abd/pelvis showed massively enlarged liver with low attentuation consistent with fatty infiltration, splenomegaly, incompletely distended gallbladder (see full report) . T bili and D bili were slowly trending down. Triple phase Liver CT showed hepatosplenomegaly, diffuse fatty infiltration of liver, focal sparing about the gallbladder fossa. Irregular enhancement of low attentuation (see full report). Autoimmune workup was done, so far negative. Hepatitis panel and HIV was negative. CMV IgG positive, IgM is pending. Patient's laboratory findings were consistent with acute alcoholic hepatitis. Patient admitted to history of alcohol use. She was started on oral Prednisone. ID was consulted for SIRS ( fever and leukocytosis). Patient was started on IV Zosyn. Source is unknown. Blood cultures, UA, and throat cultures are negative. General surgery was consulted for distended gallbladder, no surgical intervention needed at this time. On day of discharge patient was doing well. She was ambulating and tolerating diet. Denies having any pain. Eager to go home. All imaging and lab results reviewed with GI who cleared the patient from their standpoint. Patient instructed to follow up with GI clinic within 2 weeks at [facility]. Patient did have leukocytosis on day of discharge, likely secondary to steroid use. She is afebrile and there are no active signs of infections. ID cleared patient, she will not need antibiotics at this time. Patient to have labs rechecked at next outpatient clinic appointment. Patient was counselled on the importance of alcohol cessation, patient understands that drinking is detrimental to her health. Patient has a clinic appointment with [facility] on February 19 2018 at 1pm. We stressed the importance of close follow up. Medications were provided at the bedside. She was given oral Prednisone 40mg PO daily #14 tabs with 1 refill. She is to complete this course of steroids for 30 days and taper the steroid dose after that. Advised to take Prednisone with Protonix and food to avoid stomach upset. All questions and concerns were addressed. Discharge Diagnosis: Acute Alcoholic Hepatitis Hypertriglyeridemia Iron deficiency anemia Discharge Medications: Prednisone 40mg PO daily Protonix 40mg PO daily Discharge Exam - Additional Findings Additional findings: - Constitutional Appears: Well, No Acute Distress - Head Exam Head Exam: ATRAUMATIC, NORMAL INSPECTION, NORMOCEPHALIC - Eye Exam Eye Exam: EOMI, Scleral icterus - ENT Exam ENT Exam: Mucous Membranes Moist - Neck Exam Neck Exam: Full ROM - Respiratory Exam Respiratory Exam: Clear to Ausculation Bilateral, NORMAL BREATHING PATTERN. absent: Rales, Rhonchi, Wheezes - Cardiovascular Exam Cardiovascular Exam: REGULAR RHYTHM, +S1, +S2 - GI/Abdominal Exam GI & Abdominal Exam: Soft, Normal Bowel Sounds, Organomegaly. absent: Guarding , Rigid, Tenderness, Hyperactive Bowel Sounds - Extremities Exam Extremities Exam: Normal Inspection. absent: Calf Tenderness, Tenderness - Back Exam Back Exam: NORMAL INSPECTION - Neurological Exam Neurological Exam: Alert, Awake, Normal Gait, Oriented x3 - Psychiatric Exam Psychiatric exam: Normal Affect, Normal Mood - Skin Skin Exam: Dry, Warm Additional comments: Jaundiced Discharge Plan - Discharge Medications Prescriptions: predniSONE [Prednisone] 40 mg PO DAILY #14 tab RX: Pantoprazole [Protonix EC Tab] 40 mg PO 0600 #14 ect - Follow Up Plan Condition: STABLE Disposition: HOME/ ROUTINE Instructions: Jaundice in Adults, Smoking: Not Just Harmful to Your Lungs and Heart, Low Cholesterol, Saturated Fat, and Trans Fat Diet , Dangers of Secondhand Smoke, Leukocytosis (DC), Leukocytosis (GEN) Additional Instructions: 1. Patient is clear for discharge home 2. Please continue Prednisone 40mg PO daily for 30 days (we prescribed you a two week supply with 1 refill) this will eventually need to be tapered 3. Please follow up with [facility] 02/19/18 at 1pm, Follow up with GI Clinic in [facility] 4. Please abstain from alcohol use as this will make your condition worse 5. Continue Hepatic Diet - Low fat, GI soft 6. Please call the [facility] for a follow up appointment for surgical evaluation for your gallbladder Referrals: [facility] [Outside] [facility] [Outside] Kayleen Leija MD [Medical Doctor] - <Jenny Jenkins - Last Filed: 02/06/18 18:17> Provider - Provider Date of Admission: 02/03/18 20:01 Attending physician: Jenny Jenkins MD Hospital Course - Lab Results Lab Results: Most Recent Lab Values WBC 18.4 10^3/ul (4.5-11.0) H D 02/06/18 06:47 RBC 3.16 10^6/uL (3.5-6.1) L 02/06/18 06:47 Hgb 10.5 g/dL (12.0-16.0) L 02/06/18 06:47 Hct 31.9 % (36.0-48.0) L 02/06/18 06:47 MCV 100.9 fl (80.0-105.0) 02/06/18 06:47 MCH 33.2 pg (25.0-35.0) 02/06/18 06:47 MCHC 32.9 g/dl (31.0-37.0) 02/06/18 06:47 RDW 17.9 % (11.5-14.5) H 02/06/18 06:47 Plt Count 358 10^3/uL (120.0-450.0) 02/06/18 06:47 MPV 9.9 fl (7.0-11.0) 02/06/18 06:47 Gran % 89.5 % (50.0-68.0) H 02/06/18 06:47 Lymph % (Auto) 6.3 % (22.0-35.0) L 02/06/18 06:47 [place] % (Auto) 3.8 % (1.0-6.0) 02/06/18 06:47 Eos % (Auto) 0.2 % (1.5-5.0) L 02/06/18 06:47 Baso % (Auto) 0.2 % (0.0-3.0) 02/06/18 06:47 Gran # 16.49 (1.4-6.5) H 02/06/18 06:47 Lymph # (Auto) 1.2 (1.2-3.4) 06/26/18 06:47 [place] # (Auto) 0.7 (0.1-0.6) H 02/06/18 06:47 Eos # (Auto) 0.0 (0.0-0.7) 02/06/18 06:47 Baso # (Auto) 0.03 K/mm3 (0.0-2.0) 02/06/18 06:47 PT 22.9 SECONDS (9.4-12.5) H 02/04/18 06:30 INR 1.96 (0.93-1.08) H 02/04/18 06:30 APTT 40.2 Seconds (25.1-36.5) H 02/03/18 16:40 pO2 105 mm/Hg (30-55) H 02/03/18 21:00 VBG pH 7.39 (7.32-7.43) 02/03/18 21:00 VBG pCO2 36.0 (40-60) L 02/03/18 21:00 VBG HCO3 21.8 mmol/l (21-28) 02/03/18 21:00 VBG Total CO2 22.9 mmol.L (22-28) 02/03/18 21:00 VBG O2 Sat (Calc) 99.5 % (40-65) H 02/03/18 21:00 VBG Base Excess -2.6 mmol/L (0.0-2.0) L 02/03/18 21:00 VBG Potassium 3.5 mmol/L (3.6-5.2) L 02/03/18 21:00 Sodium 134.0 mmol/L (132-148) 02/03/18 21:00 Chloride 105.0 mmol/L (98-107) 02/03/18 21:00 Glucose 99 mg/dl (65-105) 02/03/18 21:00 Lactate 0.9 mmol/L (0.7-2.1) 02/03/18 21:00 FiO2 21.0 % 02/03/18 21:00 Sodium 136 mmol/L (132-148) 02/06/18 06:47 Potassium 4.3 mmol/L (3.6-5.0) 02/06/18 06:47 Chloride 106 mmol/L (98-107) 02/06/18 06:47 Carbon Dioxide 21 mmol/L (21-33) 02/06/18 06:47 Anion Gap 14 (10-20) 02/06/18 06:47 BUN 4 mg/dL (7-21) L 02/06/18 06:47 Creatinine 0.5 mg/dl (0.7-1.2) L 02/06/18 06:47 Est GFR ( Amer) > 60 02/06/18 06:47 Est GFR (Non-Af Amer) > 60 02/06/18 06:47 Random Glucose 130 mg/dL (70-110) H 02/06/18 06:47 Calcium 8.8 mg/dL (8.4-10.5) 02/06/18 06:47 Magnesium 1.9 mg/dL (1.7-2.2) 02/03/18 16:40 Iron 55 ug/dL (45-180) 02/03/18 16:40 TIBC 367 ug/dL (265-497) 02/03/18 16:40 % Saturation 15 % (20-55) L 02/03/18 16:40 Transferrin 230.94 mg/dL (206-381) 02/03/18 16:40 Ferritin 25.9 ng/mL 02/04/18 06:30 Total Bilirubin 14.7 mg/dL (0.2-1.3) H 02/06/18 06:47 Direct Bilirubin 12.9 mg/dL (0.0-0.4) H 02/06/18 06:47 GGT 256 U/L (8-78) H 02/04/18 07:00 AST 110 U/L (14-36) H 02/06/18 06:47 ALT 37 U/L (7-56) 02/06/18 06:47 Alkaline Phosphatase 150 U/L (38-126) H D 02/06/18 06:47 Ammonia 24 umol/L (9-33) 02/03/18 17:55 Total Protein 6.5 g/dL (5.8-8.3) 02/06/18 06:47 Total Protein (PEP) 4.9 g/dL (6.1-8.1) L 02/04/18 06:30 Albumin 3.0 g/dL (3.0-4.8) 02/06/18 06:47 Albumin (PEP) 2.4 g/dL (3.8-4.8) L 02/04/18 06:30 Globulin 3.6 gm/dL 02/06/18 06:47 Albumin/Globulin Ratio 0.8 (1.1-1.8) L 02/06/18 06:47 Mfjkw-8-Ncavlhgyz 0.3 g/dL (0.2-0.3) 02/04/18 06:30 Euedf-7-Wrlwelbzh 0.7 g/dL (0.5-0.9) 02/04/18 06:30 Rscm-4-Thjnaszj 0.4 g/dL (0.4-0.6) 02/04/18 06:30 Doqs-0-Burvojvh 0.4 g/dL (0.2-0.5) 02/04/18 06:30 Gamma Globulins 0.7 g/dL (0.8-1.7) L 02/04/18 06:30 Abnorm Protein Band 1 TEST NOT PERFORMED 02/04/18 06:30 Abnorm Protein Band 2 TEST NOT PERFORMED 02/04/18 06:30 Abnorm Protein Band 3 TEST NOT PERFORMED 02/04/18 06:30 Ceruloplasmin 35 mg/dL (18-53) 02/04/18 06:30 Triglycerides 459 mg/dL (35-160) H 02/03/18 18:00 Cholesterol 134 mg/dL (130-200) 02/03/18 18:00 LDL Cholesterol Direct 65 mg/dL (0-129) 02/03/18 18:00 HDL Cholesterol 12 mg/dL (29-60) L 02/03/18 18:00 Lipase < 10 U/L (23-300) L 02/03/18 16:40 Alpha Fetoprotein 2.1 ng/mL (0.0-7.5) 02/03/18 18:00 CA 19-9 Antigen 19.4 U/mL (0-37) 02/03/18 18:00 Vitamin B12 891 pg/mL (239-931) 02/03/18 18:00 Folate 6.9 ng/mL 02/03/18 18:00 Venous Blood Potassium 3.5 mmol/L (3.6-5.2) L 02/03/18 21:00 Urine Color Yellow (YELLOW) 02/03/18 16:50 Urine Appearance Clear (CLEAR) 02/03/18 16:50 Urine pH 6.5 (4.7-8.0) 02/03/18 16:50 Ur Specific [place] <= 1.005 (1.005-1.035) 02/03/18 16:50 Urine Protein Negative mg/dL (<30 mg/dL) 02/03/18 16:50 Urine Glucose (UA) Negative mg/dL (NEGATIVE) 02/03/18 16:50 Urine Ketones Negative mg/dL (NEGATIVE) 02/03/18 16:50 Urine Blood Trace-intact (NEGATIVE) H 02/03/18 16:50 Urine Nitrate Negative (NEGATIVE) 02/03/18 16:50 Urine Bilirubin Negative (NEGATIVE) 02/03/18 16:50 Urine Urobilinogen 0.2 E.U./dL (<1 E.U./dL) 02/03/18 16:50 Ur Leukocyte Esterase Negative Malcolm/uL (NEGATIVE) 02/03/18 16:50 Urine RBC 0 - 2 /hpf (0-2) 02/03/18 16:50 Urine WBC 1 - 3 /hpf (0-6) 02/03/18 16:50 Ur Epithelial Cells 1 - 3 /hpf (0-5) 02/03/18 16:50 Urine Bacteria Few (NEG) 02/03/18 16:50 Salicylates < 1 mg/dL (2.0-20.0) L 02/03/18 16:40 Urine Opiates Screen Negative (NEGATIVE) 02/03/18 17:55 Urine Methadone Screen Negative (NEGATIVE) 02/03/18 17:55 Acetaminophen < 10.0 ug/ml (10.0-20.0) L 02/03/18 18:00 Ur Barbiturates Screen Negative (NEGATIVE) 02/03/18 17:55 Ur Phencyclidine Scrn Negative (NEGATIVE) 02/03/18 17:55 Ur Amphetamines Screen Negative (NEGATIVE) 02/03/18 17:55 U Benzodiazepines Scrn Negative (NEGATIVE) 02/03/18 17:55 U Oth Cocaine Metabols Negative (NEGATIVE) 02/03/18 17:55 U Cannabinoids Screen Negative (NEGATIVE) 02/03/18 17:55 Alcohol, Quantitative < 10 mg/dL (0-10) 02/03/18 16:40 IgG 939.8 mg/dL (700.0-1600.0) 02/04/18 06:30 IgM 90.8 mg/dL (40.0-230.0) 02/04/18 06:30 CLARITZA & SPEP Interp See note 02/04/18 06:30 HUGH Nuclear Membr Pat Negative (Negative) 02/04/18 06:30 Anti-Mitochondrial Ab Negative (Negative) 02/04/18 06:30 Anti-Smooth Muscle Ab Negative (Negative) 02/04/18 06:30 CMV IgG Ab 5.30 U/mL H 02/04/18 06:30 CMV IgM Ab <30.00 AU/mL 02/04/18 06:30 EBV Capsid Ag IgM Ab <36.00 U/mL 02/04/18 06:30 Hepatitis A IgM Ab Negative (NEGATIVE) 02/03/18 16:40 Hep Bs Antigen Negative (NEGATIVE) 02/03/18 16:40 Hep B Core IgM Ab Negative (NEGATIVE) 02/03/18 16:40 Hepatitis C Antibody Negative (NEGATIVE) 02/03/18 16:40 HSV I IgG Ab <0.90 index 02/04/18 06:30 HSV II IgG <0.90 index 02/04/18 06:30 HIV 1&2 Ag/Ab, 4th Gen Nonreactive (Nonreactive) 02/04/18 07:00 Infectious [place] Assay Negative (NEGATIVE) 02/03/18 16:40 Grp A Beta Strep Ag Negative (NEGATIVE) 02/03/18 16:50 Attending/Attestation - Attestation I have personally seen and examined this patient.: Yes I have fully participated in the care of the patient.: Yes I have reviewed all pertinent clinical information, including history, physical exam and plan: Yes Notes (Text): 02/06/18 18:15 attending note; Patient seen and examined with resident. Patient is a 27 year old female with past medical history of pancreatitis, hypertriglyceridemia and anemia who presented with jaundice and fever. Found to have SIRS, hyperbilirubinemia and hepatomegaly/splenomegaly on imaging. GI evaluation was appreciated. patient with a history of alcohol abuse. LFTs improving. Case discussed with GI in detail. Started on by mouth prednisone. continue PPI. Needs close monitoring as outpatient. Triple phase CT showed hepatosplenomegaly and gallbladder wall thickening. surgery evaluation appreciated. Needs outpatient follow-up. Currently patient is pain-free and tolerating diet well. She is empirically started on zosyn while awaiting cultures. Blood culture is negative. CMV, EBV, hepatitis, HIV, HSV is negative. strep is negative. Patient needs close outpatient follow-up with GI. Patient will follow-up with [facility] on 02/19/18 at 1 PM. will follow-up with LFT. discharge home today. 02/06/18 18:16
--- NOTE | 2018-02-05 12:31 | CP.PCM.PN ---
<JacquezoeyAriel wilson - Last Filed: 02/05/18 12:33> Subjective - Date & Time of Evaluation Date of Evaluation: 02/05/18 Time of Evaluation: 07:20 - Subjective Subjective: PGY5 GI Fellow Progress Note - LATE ENTRY Patient seen and examined bedside this morning. The patient states she is feeling well and denies any new complaints. She is less fatigued. No events overnight. Pt more forthcoming with alcohol use today, stating she drank 3 margaritas 10 days ago and one month prior. Also had heavier use in the last year. 12 system ROS performed and negative except where stated. Objective - Vital Signs/Intake and Output Vital Signs (last 24 hours): Temp Pulse Resp BP Pulse Ox 99.1 F 83 20 106/58 L 98 02/05/18 12:00 02/05/18 12:00 02/05/18 12:00 02/05/18 12:00 02/05/18 12:00 Intake and Output: 02/05/18 02/05/18 06:59 18:59 Intake Total 1440 Balance 1440 - Medications Medications: Current Medications Ferrous Gluconate (Fergon) 324 mg PO DAILY [facility] Last Admin: 02/05/18 09:11 Dose: 324 mg Sodium Chloride (Sodium Chloride 0.9%) 1,000 mls @ 100 mls/hr IV .Q10H [facility] Last Admin: 02/05/18 03:06 Dose: 100 mls/hr Piperacillin Sod/Tazobactam Sod (Zosyn 3.375 In Ns 100ml) 100 mls @ 200 mls/hr IVPB Q6 [facility] PRN Reason: Protocol Stop: 02/11/18 12:01 Last Admin: 02/05/18 05:24 Dose: 200 mls/hr Ibuprofen (Motrin Tab) 400 mg PO Q6H PRN PRN Reason: Fever >100.4 F Multivitamins (Thera Tab) 1 tab PO DAILY [facility] Last Admin: 02/05/18 09:11 Dose: 1 tab Pantoprazole Sodium (Protonix Ec Tab) 40 mg PO 0600 [facility] Last Admin: 02/05/18 06:47 Dose: 40 mg - Labs Labs: 02/05/18 06:44 02/05/18 06:44 PT 22.9 SECONDS (9.4-12.5) H 02/04/18 06:30 INR 1.96 (0.93-1.08) H 02/04/18 06:30 APTT 40.2 Seconds (25.1-36.5) H 02/03/18 16:40 - Constitutional Appears: No Acute Distress - Eye Exam Eye Exam: EOMI, PERRL, Scleral icterus - ENT Exam ENT Exam: Mucous Membranes Moist - Respiratory Exam Respiratory Exam: Clear to Ausculation Bilateral. absent: Rales, Rhonchi, Wheezes - Cardiovascular Exam Cardiovascular Exam: RRR, +S1, +S2 - GI/Abdominal Exam GI & Abdominal Exam: Soft, Normal Bowel Sounds, Organomegaly. absent: Distended , Firm, Guarding, Rigid, Tenderness, Mass - Extremities Exam Extremities Exam: Normal Inspection. absent: Pedal Edema - Neurological Exam Neurological Exam: Alert, Awake, Oriented x3 - Psychiatric Exam Psychiatric exam: Normal Affect, Normal Mood - Skin Skin Exam: Dry, Warm Assessment and Plan - Assessment and Plan (Free Text) Assessment: Patient is a 27yo female with PMHx significant for anemia who presented to the ED with complaint of fatigue and jaundice -Painless jaundice, suspect acute alcoholic hepatitis -Coagulopathy -Hepatomegaly -Chronic anemia Plan: -Given new information of recent EtOH use would favor diagnosis of acute alcoholic hepatitis -Start Prenisolone 40mg PO QD for 4 weeks, will require taper -Patient should follow up in office in 2 weeks -Await remainder of chronic liver disease work up to R/O contributing disease -CT triple phase performed this morning -Diet as tolerated <Kayleen Leija - Last Filed: 02/05/18 13:23> Objective - Vital Signs/Intake and Output Vital Signs (last 24 hours): Temp Pulse Resp BP Pulse Ox 99.1 F 83 20 106/58 L 98 02/05/18 12:00 02/05/18 12:00 02/05/18 12:00 02/05/18 12:00 02/05/18 12:00 Intake and Output: 02/05/18 02/05/18 06:59 18:59 Intake Total 1440 Balance 1440 - Medications Medications: Current Medications Ferrous Gluconate (Fergon) 324 mg PO DAILY [facility] Last Admin: 02/05/18 09:11 Dose: 324 mg Sodium Chloride (Sodium Chloride 0.9%) 1,000 mls @ 100 mls/hr IV .Q10H [facility] Last Admin: 02/05/18 03:06 Dose: 100 mls/hr Piperacillin Sod/Tazobactam Sod (Zosyn 3.375 In Ns 100ml) 100 mls @ 200 mls/hr IVPB Q6 [facility] PRN Reason: Protocol Stop: 02/11/18 12:01 Last Admin: 02/05/18 12:27 Dose: 200 mls/hr Ibuprofen (Motrin Tab) 400 mg PO Q6H PRN PRN Reason: Fever >100.4 F Multivitamins (Thera Tab) 1 tab PO DAILY [facility] Last Admin: 02/05/18 09:11 Dose: 1 tab Pantoprazole Sodium (Protonix Ec Tab) 40 mg PO 0600 [facility] Last Admin: 02/05/18 06:47 Dose: 40 mg - Labs Labs: 02/05/18 06:44 02/05/18 06:44 PT 22.9 SECONDS (9.4-12.5) H 02/04/18 06:30 INR 1.96 (0.93-1.08) H 02/04/18 06:30 APTT 40.2 Seconds (25.1-36.5) H 02/03/18 16:40 Attending/Attestation - Attestation I have personally seen and examined this patient.: Yes I have fully participated in the care of the patient.: Yes I have reviewed all pertinent clinical information, including history, physical exam and plan: Yes Notes (Text): 02/05/18 13:18 This is a 27 year old female with PMHx significant for anemia and alcoholic pancreatitis who presented to the ED with complaint of fatigue and new onset painless jaundice with no mass lesions in liver, pancreas and hyperbilirubinemia and coagulopathy. patient acknowledges to alcohol binging till last year and last drink was on 01/26. She noticed worsening jaundice in past two weeks. Bilirubin downtrending with abstinence. Will start methyl prendnisolone 40mg PO QD for 4 weeks, will require taper. To follow in [facility]. No s/s of HE or liver failure. Liver lesions- Await triple phase CT
--- NOTE | 2018-02-05 13:45 | CT ---
PROCEDURE: CT Abdomen with and without intravenous contrast HISTORY: hepatomegaly, liver lesion, R/O Budd-chiari COMPARISON: None. TECHNIQUE: Axial images of the abdomen from lung bases to iliac crest with and without intravenous contrast enhancement. Postcontrast images were acquired in the hepatic arterial and portal venous phases of enhancement. Coronal and sagittal reformats generated. Oral contrast also administered. Intravenous contrast Dose: 150 mL Omnipaque 350 Radiation dose: Total exam DLP = 2282.37 mGy-cm. This CT exam was performed using one or more of the following dose reduction techniques: Automated exposure control, adjustment of the mA and/or kV according to patient size, and/or use of iterative reconstruction technique. FINDINGS: LOWER THORAX: Bilateral lower lobe subsegmental atelectasis, right greater than left. No amanda infiltrate. No pulmonary mass. No pleural effusion. LIVER: Marked hepatomegaly. The liver measures approximately 32 cm in craniocaudal dimension. Please note that this examination is technically limited in that the most inferior portion of the right hepatic lobe has not been included in the examination. The liver is markedly diminished in attenuation consistent with fatty infiltration. There is focal fatty sparing seen about the gallbladder fossa. There is focal fatty sparing seen at the superior margin of the medial left hepatic lobe adjacent to the fissure for the ligamentum teres. There is early arterial enhancement in this region of focal fatty sparing adjacent to the ligamentum teres fissure which persists on portal venous phase. This is ill-defined and measures roughly 1.6 x 2.7 by 3.2 cm. Uncertain significance. There is an irregularly-shaped area of diminished attenuation in the superior lateral right hepatic lobe adjacent to the dome of the liver. This measures roughly 1.8 x 2.5 x 2.9 cm. This does not demonstrate significant enhancement following intravenous contrast administration. There is no evidence to suggest that this represents a hemangioma. Significance uncertain. There is no other hepatic mass identified. There is no intrahepatic biliary ductal dilatation. The contour of the liver is smooth. GALLBLADDER AND BILE DUCTS: Diffuse mural thickening of the gallbladder, nonspecific. No calcified gallstones. Gallbladder collapsed at the time of this examination. No pericholecystic fluid. PANCREAS: Pancreas is moderately atrophic. There is no mass identified. There is no pancreatic ductal dilatation seen. SPLEEN: Spleen is enlarged, measuring approximately 17.2 cm in greatest dimension. There is no focal mass appreciated. ADRENALS: Unremarkable. No mass. KIDNEYS AND URETERS: Unremarkable. No hydronephrosis. No solid mass. VASCULATURE: Unremarkable. No aortic aneurysm. BOWEL: Unremarkable. No obstruction. No gross mural thickening. APPENDIX: Not included PERITONEUM: Minimal ascites noted in the superior pelvis. LYMPH NODES: Unremarkable. No enlarged lymph nodes. BONES: No acute fracture. OTHER FINDINGS: None. IMPRESSION: Hepatosplenomegaly. Diffuse fatty infiltration of the liver. Focal fatty sparing about the gallbladder fossa. Focal fatty sparing in the medial left hepatic lobe adjacent to the fissure for the ligamentum teres. Irregular area of enhancement in the region of this focal fatty sparing in the medial left hepatic lobe. This enhancement is a early and persistent and is of uncertain significance. There is an irregular area of low attenuation in the superior lateral right hepatic lobe which does not demonstrate significant enhancement and is not consistent with a hemangioma. Significance uncertain. Followup advised for both of these hepatic lesions. Diffuse nonspecific mural thickening of the gallbladder. Bilateral lower lobe subsegmental atelectasis.
--- NOTE | 2018-02-05 15:15 | CP.PCM.PN ---
<Rayne Diaz - Last Filed: 02/05/18 17:29> Subjective - Date & Time of Evaluation Date of Evaluation: 02/05/18 Time of Evaluation: 15:13 - Subjective Subjective: Internal Medicine Progress Note - Hospitalist Service Patient seen and examined at bedside. Per nursing no acute events overnight. Patient is doing well, offering no complaints at this time. Denies headaches, dizziness, cp, palpitations, sob, abdominal pain, urinary symptoms. Less fatigued today. Objective - Vital Signs/Intake and Output Vital Signs (last 24 hours): Temp Pulse Resp BP Pulse Ox 99.1 F 83 20 106/58 L 98 02/05/18 12:00 02/05/18 12:00 02/05/18 12:00 02/05/18 12:00 02/05/18 12:00 Intake and Output: 02/05/18 02/05/18 06:59 18:59 Intake Total 1440 Balance 1440 - Medications Medications: Current Medications Ferrous Gluconate (Fergon) 324 mg PO DAILY [facility] Last Admin: 02/05/18 09:11 Dose: 324 mg Piperacillin Sod/Tazobactam Sod (Zosyn 3.375 In Ns 100ml) 100 mls @ 200 mls/hr IVPB Q6 [facility] PRN Reason: Protocol Stop: 02/11/18 12:01 Last Admin: 02/05/18 12:27 Dose: 200 mls/hr Ibuprofen (Motrin Tab) 400 mg PO Q6H PRN PRN Reason: Fever >100.4 F Multivitamins (Thera Tab) 1 tab PO DAILY [facility] Last Admin: 02/05/18 09:11 Dose: 1 tab Pantoprazole Sodium (Protonix Ec Tab) 40 mg PO 0600 [facility] Last Admin: 02/05/18 06:47 Dose: 40 mg - Labs Labs: 02/05/18 06:44 02/05/18 06:44 PT 22.9 SECONDS (9.4-12.5) H 02/04/18 06:30 INR 1.96 (0.93-1.08) H 02/04/18 06:30 APTT 40.2 Seconds (25.1-36.5) H 02/03/18 16:40 - Constitutional Appears: Well, No Acute Distress - Head Exam Head Exam: ATRAUMATIC, NORMAL INSPECTION, NORMOCEPHALIC - Eye Exam Eye Exam: EOMI, Scleral icterus - ENT Exam ENT Exam: Mucous Membranes Moist - Neck Exam Neck Exam: Full ROM - Respiratory Exam Respiratory Exam: Clear to Ausculation Bilateral, NORMAL BREATHING PATTERN. absent: Rales, Rhonchi, Wheezes - Cardiovascular Exam Cardiovascular Exam: REGULAR RHYTHM, +S1, +S2 - GI/Abdominal Exam GI & Abdominal Exam: Soft, Normal Bowel Sounds, Organomegaly. absent: Guarding , Rigid, Tenderness, Hyperactive Bowel Sounds - Extremities Exam Extremities Exam: Normal Inspection. absent: Calf Tenderness, Tenderness - Back Exam Back Exam: NORMAL INSPECTION - Neurological Exam Neurological Exam: Alert, Awake, Normal Gait, Oriented x3 - Psychiatric Exam Psychiatric exam: Normal Affect, Normal Mood - Skin Skin Exam: Dry, Warm Additional comments: Jaundiced Assessment and Plan - Assessment and Plan (Free Text) Assessment: A/P: Patient is a 27 y/o with PMHx of pancreatitis, hypertriglycemia, and anemia who presented with jaundice for 10 days, admitted with painless jaundice and fever found to have hepatomegaly and a foci on CT. Painless Jaundice with direct hyperbilirubinemia -Stable, afebrile (T max 99.9) -T Bili in trending down, 16.2 -> 14.7, D Bili trending down -Hep panel negative, autoimmune workup in progress -Per GI, presentation is likely secondary to alcohol hepatitis -Will start on Prednisone 40mg PO daily -Triple phase CT shows hepatosplenomegaly, fatty liver, two areas of low attenuation, significance uncertain, hemangioma less likely -Autoimmune work up sent including alpha 1 antitrypcin, lupus, lexi's, cmv, hiv, hsv, AH, electrophoresis for amyloidosis and BPC. -AFP and CA 19-9 within normal limits -Tylenol and urine drug screen negative. Patient admits to alcohol use. -CT abd/pelvis showed with hepatomegaly, supralateral right lobe liver with 3 cm x 2.4 cm foci likely hemangioma. -Abdominal U/S with hepatomegaly, splenomegaly, no acute sury noted, no stones. -Diet: Hepatic Diet -[facility] referral placed -GI on consult, help appreciated SIRS r/o sepsis -Chest x-ray normal, ua with no uti. -Leukocytosis initially resolved but trending up, 14.1 today -Blood cultures showing no growth x 24 hours and urine cultures sent -Throat cultures negative -Antibiotics: Zosyn 3.375mg Q6H -F/U CMV, EBV, HIV, HSV -ID consulted, help appreciated Gallbladder wall thickening/Pericholecystic fluid -Asymptomatic -General surgery on consult, help appreciated -No surgical intervention at this time Coagulopathy- -INR 1.96 likely due to hepatomegaly -No signs of bleeding will monitor for now. Iron deficiency Anemia -Hgb from 9.4 to 9.2 (stable, asymptomatic) -Anemia work up reviewed -Will continue po iron at home dose Hx of Hypertriglyceridemia -Triglycerides 459 Transaminitis -AST/ALT 125/34 -Hepatitis panel is negative -This is likely due to alcoholic hepatitis -Avoid hepatotoxic agents Hypokalemia -will replete and continue to monitor DVT and GI prophyalxis: Protonix 40mg PO daily SCDs DISPO: [facility], appointment made for February 19 1pm. Patient will also need to follow up with GI clinic in [place]. Plan discussed with Dr Alice Diaz DO PGY-1 <Jenny Jenkins - Last Filed: 02/06/18 18:15> Objective - Vital Signs/Intake and Output Vital Signs (last 24 hours): Temp Pulse Resp BP Pulse Ox 98.3 F 61 20 98/63 L 97 02/06/18 06:00 02/06/18 06:00 02/06/18 06:00 02/06/18 06:00 02/06/18 06:00 Intake and Output: 02/06/18 02/06/18 06:59 18:59 Intake Total 480 600 Balance 480 600 - Labs Labs: 02/06/18 06:47 02/06/18 06:47 PT 22.9 SECONDS (9.4-12.5) H 02/04/18 06:30 INR 1.96 (0.93-1.08) H 02/04/18 06:30 APTT 40.2 Seconds (25.1-36.5) H 02/03/18 16:40 Attending/Attestation - Attestation I have personally seen and examined this patient.: Yes I have fully participated in the care of the patient.: Yes I have reviewed all pertinent clinical information, including history, physical exam and plan: Yes Notes (Text): 02/06/18 18:10 attending note; Patient seen and examined with resident. Patient is a 27 year old female with past medical history of pancreatitis, hypertriglyceridemia and anemia who presented with jaundice and fever. Found to have SIRS, hyperbilirubinemia and hepatomegaly/splenomegaly on imaging. GI evaluation was appreciated. patient with a history of alcohol abuse. LFTs improving. Case discussed with GI in detail. Started on by mouth prednisone. continue PPI. Needs close monitoring as outpatient. Triple phase CT showed hepatosplenomegaly and gallbladder wall thickening. surgery evaluation appreciated. Needs outpatient follow-up. Currently patient is pain-free and tolerating diet well. She is empirically started on zosyn while awaiting cultures. Blood culture is negative. CMV, EBV, hepatitis, HIV, HSV is negative. strep is negative. Patient needs close outpatient follow-up with GI. Patient will be referred to [facility] clinic upon discharge. Possible discharge home tomorrow.
--- NOTE | 2018-02-05 15:43 | CP.PCM.CON ---
<Diane Montanez - Last Filed: 02/05/18 15:53> History of Present Illness - History of Present Illness History of Present Illness: General surgery consult for Dr. Melchor Montanez, PGY-1 Pt S & E at bedside at 1530 27F w/PMH sig for pancreatitis, anemia consulted for gallbladder wall thickening finding on CT abdomen. Pt originally admitted for fatigue, jaundice x 12 days, dark urine and wt loss (unintended) x 6 mos. Pt denies abdominal pain, N & V, F & C, dizziness, BRISCOE, changes in stool color, hematochezia, hematuria, constipation, diarrhea, changes in urinary habits, abdominal pain after eating spicy or fatty foods, other complaints. Upon admission - Ab U/S w/markedly enlarged liver w/diffuse fatty infiltration, GB wall thickened (4.5 mm), pericholecystic fluid, no gallstones, splenomegaly of [address] ab- pericholecystic fluid, enlarged liver, diffuse fatty infiltration of liver, ill defined hypodensity noted in liver- 2.2 cm, enlarged spleen Leukocytosis 18.7 now 14.7 (down trending), T bili 20.1, D bili 17.7 on admission, now 13.0. Rapid strept neg. Infectious mono neg. UDS neg. Hep panel neg. T bili down trending now (14.7). Triple phase CT shows hepatosplenomegaly, fatty liver, two areas of low attenuation, significance uncertain, hemangioma less likely. AFP and CA 19-9 within normal limits. PT high - 22.9. INR 1.96. PMH: pancreatitis, hypertriglyceridemia, syncopal episodes, ectopic , Fe deficiency anemia PSH: (2012) All: NKDA SH: Admits to occasional ETOH use, denies tobacco or illicit drug use; recently traveled to [place] in August 2017 FH: Father-DM Review of Systems - Review of Systems All systems: reviewed and no additional remarkable complaints except - Constitutional Constitutional: absent: Chills, Fever, Headache, Weakness - EENT Eyes: absent: Change in Vision Ears: absent: Dizziness Nose/Mouth/Throat: absent: Sore Throat - Cardiovascular Cardiovascular: absent: Chest Pain - Respiratory Respiratory: absent: Cough - Gastrointestinal Gastrointestinal: absent: Abdominal Pain, Belching, Bloating, Change in Bowel Habits, Change in Stool Character, Constipation, Cramping, Diarrhea, Hematemesis , Hematochezia, Loose Stools, Melena, Nausea, Vomiting - Genitourinary Genitourinary: absent: Change in Urinary Stream, Dysuria, Hematuria - Musculoskeletal Musculoskeletal: absent: Back Pain, Numbness, Tingling - Integumentary Integumentary: Jaundice - Neurological Neurological: absent: Dizziness - Psychiatric Psychiatric: absent: Change in Appetite Past Patient History - Infectious Disease Hx of Infectious Diseases: None - Past Social History Smoking Status: Never Smoked - CARDIAC Hx Cardiac Disorders: Yes Hx Hypercholesterolemia: Yes - PULMONARY Hx Respiratory Disorders: No - NEUROLOGICAL Hx Neurological Disorder: No - HEENT Hx HEENT Problems: No - RENAL Hx Chronic Kidney Disease: No - ENDOCRINE/METABOLIC Hx Endocrine Disorders: No - HEMATOLOGICAL/ONCOLOGICAL Hx Blood Disorders: Yes Hx Anemia: Yes - INTEGUMENTARY Hx Dermatological Problems: No - MUSCULOSKELETAL/RHEUMATOLOGICAL Hx Musculoskeletal Disorders: No Hx Falls: No - GASTROINTESTINAL Hx Gastrointestinal Disorders: Yes Hx Pancreatitis: Yes - GENITOURINARY/GYNECOLOGICAL Hx Genitourinary Disorders: Yes Other/Comment: IRREGULAR PERIOD - PSYCHIATRIC Hx Psychophysiologic Disorder: No Hx Substance Use: No - SURGICAL HISTORY Hx Surgeries: Yes Other/Comment: - ANESTHESIA Hx Anesthesia Reactions: No Hx Malignant Hyperthermia: No Meds Home Medications: Home Medication List Medication Instructions Recorded Confirmed Type Pantoprazole [Protonix EC Tab] 40 mg PO 0600 #14 ect 02/05/18 Rx predniSONE [Prednisone] 40 mg PO DAILY #14 tab 02/05/18 Rx Allergies/Adverse Reactions: Allergies Allergy/AdvReac Type Severity Reaction Status Date / Time No Known Allergies Allergy Verified 02/03/18 15:50 - Medications Medications: Current Medications Ferrous Gluconate (Fergon) 324 mg PO DAILY [facility] Last Admin: 02/05/18 09:11 Dose: 324 mg Piperacillin Sod/Tazobactam Sod (Zosyn 3.375 In Ns 100ml) 100 mls @ 200 mls/hr IVPB Q6 [facility] PRN Reason: Protocol Stop: 02/11/18 12:01 Last Admin: 02/05/18 12:27 Dose: 200 mls/hr Ibuprofen (Motrin Tab) 400 mg PO Q6H PRN PRN Reason: Fever >100.4 F Multivitamins (Thera Tab) 1 tab PO DAILY [facility] Last Admin: 02/05/18 09:11 Dose: 1 tab Pantoprazole Sodium (Protonix Ec Tab) 40 mg PO 0600 [facility] Last Admin: 02/05/18 06:47 Dose: 40 mg Prednisone (Prednisone Tab) 40 mg PO DAILY [facility] Physical Exam - Constitutional Appears: Non-toxic, No Acute Distress - Head Exam Head Exam: ATRAUMATIC, NORMAL INSPECTION, NORMOCEPHALIC - Eye Exam Eye Exam: EOMI, Scleral icterus. absent: Normal appearance - ENT Exam ENT Exam: Mucous Membranes Moist, Normal Exam - Respiratory Exam Respiratory Exam: NORMAL BREATHING PATTERN. absent: Rales, Rhonchi, Wheezes, Respiratory Distress - Cardiovascular Exam Cardiovascular Exam: REGULAR RHYTHM, +S1, +S2 - GI/Abdominal Exam GI & Abdominal Exam: Normal Bowel Sounds, Soft. absent: Distended, Firm, Guarding, Pulsatile Mass, Rebound, Rigid, Tenderness - Extremities Exam Extremities exam: Positive for: normal inspection. Negative for: pedal edema, tenderness - Neurological Exam Neurological exam: Alert, CN II-XII Intact, Oriented x3 - Psychiatric Exam Psychiatric exam: Normal Affect, Normal Mood - Skin Skin Exam: Dry, Intact, Warm Additional comments: Grossly jaundice Jaundice noted underneath the tongue Results - Vital Signs Recent Vital Signs: Last Vital Signs Temp 99.1 F 02/05/18 12:00 Pulse 83 02/05/18 12:00 Resp 20 02/05/18 12:00 BP 106/58 L 02/05/18 12:00 Pulse Ox 98 02/05/18 12:00 - Labs Result Diagrams: 02/05/18 06:44 02/05/18 06:44 Labs: Laboratory Results - last 24 hr 02/04/18 02/04/18 02/04/18 06:30 06:30 06:30 WBC RBC Hgb Hct MCV MCH MCHC RDW Plt Count MPV Gran % Lymph % (Auto) [place] % (Auto) Eos % (Auto) Baso % (Auto) Gran # Lymph # (Auto) [place] # (Auto) Eos # (Auto) Baso # (Auto) Sodium Potassium Chloride Carbon Dioxide Anion Gap BUN Creatinine Est GFR ( Amer) Est GFR (Non-Af Amer) Random Glucose Calcium Ferritin 25.9 Total Bilirubin Direct Bilirubin GGT AST ALT Alkaline Phosphatase Total Protein Albumin Globulin Albumin/Globulin Ratio Anti-Mitochondrial Ab Negative Anti-Smooth Muscle Ab Negative EBV Capsid Ag IgM Ab <36.00 02/04/18 02/05/18 02/05/18 07:00 06:44 06:44 WBC 14.1 H D RBC 2.76 L Hgb 9.2 L Hct 28.0 L MCV 101.4 MCH 33.3 MCHC 32.9 RDW 18.7 H Plt Count 332 MPV 9.9 Gran % 83.0 H Lymph % (Auto) 8.5 L [place] % (Auto) 6.8 H Eos % (Auto) 1.1 L Baso % (Auto) 0.6 Gran # 11.75 H Lymph # (Auto) 1.2 [place] # (Auto) 1.0 H Eos # (Auto) 0.2 Baso # (Auto) 0.08 Sodium 136 Potassium 4.0 Chloride 107 Carbon Dioxide 21 Anion Gap 13 BUN 3 L Creatinine 0.5 L Est GFR ( Amer) > 60 Est GFR (Non-Af Amer) > 60 Random Glucose 92 Calcium 7.9 L Ferritin Total Bilirubin 14.7 H Direct Bilirubin 13.0 H GGT 256 H AST 125 H ALT 34 Alkaline Phosphatase 119 Total Protein 5.6 L Albumin 2.5 L Globulin 3.1 Albumin/Globulin Ratio 0.8 L Anti-Mitochondrial Ab Anti-Smooth Muscle Ab EBV Capsid Ag IgM Ab Assessment & Plan - Assessment and Plan (Free Text) Assessment: 27F w/PMH sig for pancreatitis, anemia consulted for gallbladder wall thickening finding on CT abdomen in setting of hyperbilirubinemia with hepatosplenomegaly and liver lesions Plan: GI recs- steroids No surgical intervention at this time Please follow up at the [facility] surgery clinic for further outpatient evaluation of liver lesion and evaluation of gallbladder DW attending Lisseth, PGY-1 - Date & Time Date: 02/05/18 Time: 15:42 <Qamar Proctor - Last Filed: 02/11/18 19:55> Results - Vital Signs Recent Vital Signs: Last Vital Signs Temp 98.3 F 02/06/18 06:00 Pulse 61 02/06/18 06:00 Resp 20 02/06/18 06:00 BP 98/63 L 02/06/18 06:00 Pulse Ox 97 02/06/18 06:00 - Labs Result Diagrams: 02/06/18 06:47 02/06/18 06:47 Attending/Attestation - Attestation I have personally seen and examined this patient.: Yes I have fully participated in the care of the patient.: Yes I have reviewed all pertinent clinical information: Yes Notes (Text): Pt was seen and examined at bedside Agree with above note and assessment Pt with Hepatosplenomegaly and GB wall thickening Labs and radiology reviewed Plan : No need for any surgical intervention at present F/u with GI as out pt c.w current mx Plan d.w pt in detail Risk and benefit explained in detail
--- NOTE | 2018-02-05 16:57 | CP.PCM.PN ---
Subjective - Date & Time of Evaluation Date of Evaluation: 02/05/18 Time of Evaluation: 09:55 - Subjective Subjective: Patient still jaundiced, no abdominal pain, no nausea, no fevers. Objective - Vital Signs/Intake and Output Vital Signs (last 24 hours): Temp Pulse Resp BP Pulse Ox 98.6 F 88 18 91/57 L 98 02/05/18 05:42 02/05/18 05:42 02/05/18 05:42 02/05/18 05:42 02/05/18 05:42 Intake and Output: 02/05/18 02/05/18 06:59 18:59 Intake Total 1440 Balance 1440 - Medications Medications: Current Medications Ferrous Gluconate (Fergon) 324 mg PO DAILY [facility] Last Admin: 02/04/18 10:55 Dose: 324 mg Sodium Chloride (Sodium Chloride 0.9%) 1,000 mls @ 100 mls/hr IV .Q10H [facility] Last Admin: 02/05/18 03:06 Dose: 100 mls/hr Piperacillin Sod/Tazobactam Sod (Zosyn 3.375 In Ns 100ml) 100 mls @ 200 mls/hr IVPB Q6 [facility] PRN Reason: Protocol Stop: 02/11/18 12:01 Last Admin: 02/05/18 05:24 Dose: 200 mls/hr Ibuprofen (Motrin Tab) 400 mg PO Q6H PRN PRN Reason: Fever >100.4 F Multivitamins (Thera Tab) 1 tab PO DAILY [facility] Last Admin: 02/04/18 10:55 Dose: 1 tab Pantoprazole Sodium (Protonix Ec Tab) 40 mg PO 0600 [facility] Last Admin: 02/05/18 06:47 Dose: 40 mg - Labs Labs: 02/04/18 06:30 02/04/18 06:30 PT 22.9 SECONDS (9.4-12.5) H 02/04/18 06:30 INR 1.96 (0.93-1.08) H 02/04/18 06:30 APTT 40.2 Seconds (25.1-36.5) H 02/03/18 16:40 - Constitutional Appears: Chronically Ill - Head Exam Head Exam: NORMAL INSPECTION - Eye Exam Eye Exam: Scleral icterus - Neck Exam Neck Exam: absent: Meningismus - Respiratory Exam Respiratory Exam: Decreased Breath Sounds. absent: Rales - Cardiovascular Exam Cardiovascular Exam: +S1, +S2 - GI/Abdominal Exam GI & Abdominal Exam: Soft. absent: Tenderness Assessment and Plan - Assessment and Plan (Free Text) Plan: Assessment Painless direct hyperbilirubinemia, consider obstructive jaundice R/O hepatitis pancreatitis hypertriglyceridemia obesity with BMI 32 chronic anemia Plan Follow up triple phase CT A/P; will also follow up blood cx, HIV test, viral hepatitis profile, CMV, EBV, HSV tests; follow up other tests for autoimmune hepatitis and Renato's disease follow up further GI recommendations will monitor clinically continue Zosyn for now since there was pericholecystic fluid on initial CT A/P - follow up the repeat CT scan and blood cx
[2018-02-05 22:49] VITALS: O2SAT 97
[2018-02-06] MEDS: Piperacillin/Tazobact 3.375 gm 100 ML IVPB SCH ×2 (05:34→12:16)
[2018-02-06] MEDS: Pantoprazole 40 mg EC Tab PO SCH (05:35)
[2018-02-06 07:00] LABS: BASO # 0.03 K/mm3 (0.0-2.0); BASO % 0.2 % (0.0-3.0); EOS % 0.2 % (1.5-5.0); GRAN # 16.49 (1.4-6.5); GRAN % 89.5 % (50.0-68.0); HEMOGLOBIN 10.5 g/dL (12.0-16.0); LYMPH # 1.2 (1.2-3.4); LYMPH % 6.3 % (22.0-35.0); MEAN CELL VOLUME 100.9 fl (80.0-105.0); MEAN CORPUSCULAR HEMOGLOBIN 33.2 pg (25.0-35.0); MEAN CORPUSCULAR HGB CONC 32.9 g/dl (31.0-37.0); MEAN PLATELET VOLUME 9.9 fl (7.0-11.0); MONO # 0.7 (0.1-0.6); MONO % 3.8 % (1.0-6.0); RBC 3.16 10^6/uL (3.5-6.1); RED CELL DISTRIBUTION WIDTH 17.9 % (11.5-14.5); WHITE BLOOD COUNT 18.4 10^3/ul (4.5-11.0)
[2018-02-06 07:18] LABS: ALB/GLOB RATIO 0.8 (1.1-1.8); ALT/SGPT 37 U/L (7-56); AST/SGOT 110 U/L (14-36); BILIRUBIN,DIRECT 12.9 mg/dL (0.0-0.4); BLOOD UREA NITROGEN 4 mg/dL (7-21); CALCIUM 8.8 mg/dL (8.4-10.5); GFR NON-AFRICAN AMERICAN > 60
[2018-02-06 08:00] VITALS: BP 98/63; PULSE 61; RESP 20; TEMP 98.3
[2018-02-06 08:51] LABS: CERULOPLASMIN 35 mg/dL (18-53)
[2018-02-06 09:22] LABS: ALBUMIN (PEP) 2.4 g/dL (3.8-4.8); ALPHA-1-GLOBULIN (PEP) 0.3 g/dL (0.2-0.3)
--- NOTE | 2018-02-06 09:37 | CP.PCM.PN ---
<Ariel Isaac - Last Filed: 02/06/18 09:32> Subjective - Date & Time of Evaluation Date of Evaluation: 02/06/18 Time of Evaluation: 07:10 - Subjective Subjective: PGY5 GI Fellow Progress Note Patient seen and examined bedside this morning. The patient has no complaints presently and denies any issues overnight. Eager to return home. 12 system ROS performed and negative except where stated Objective - Vital Signs/Intake and Output Vital Signs (last 24 hours): Temp Pulse Resp BP Pulse Ox 98.3 F 61 20 98/63 L 97 02/06/18 06:00 02/06/18 06:00 02/06/18 06:00 02/06/18 06:00 02/06/18 06:00 Intake and Output: 02/06/18 02/06/18 06:59 18:59 Intake Total 480 Balance 480 - Medications Medications: Current Medications Ferrous Gluconate (Fergon) 324 mg PO DAILY [facility] Last Admin: 02/05/18 09:11 Dose: 324 mg Piperacillin Sod/Tazobactam Sod (Zosyn 3.375 In Ns 100ml) 100 mls @ 200 mls/hr IVPB Q6 [facility] PRN Reason: Protocol Stop: 02/11/18 12:01 Last Admin: 02/06/18 05:34 Dose: 200 mls/hr Ibuprofen (Motrin Tab) 400 mg PO Q6H PRN PRN Reason: Fever >100.4 F Multivitamins (Thera Tab) 1 tab PO DAILY [facility] Last Admin: 02/05/18 09:11 Dose: 1 tab Pantoprazole Sodium (Protonix Ec Tab) 40 mg PO 0600 [facility] Last Admin: 02/06/18 05:35 Dose: 40 mg Prednisone (Prednisone Tab) 40 mg PO DAILY [facility] Last Admin: 02/05/18 17:13 Dose: 40 mg - Labs Labs: 02/06/18 06:47 02/06/18 06:47 PT 22.9 SECONDS (9.4-12.5) H 02/04/18 06:30 INR 1.96 (0.93-1.08) H 02/04/18 06:30 APTT 40.2 Seconds (25.1-36.5) H 02/03/18 16:40 - Constitutional Appears: No Acute Distress - Eye Exam Eye Exam: EOMI, PERRL, Scleral icterus - ENT Exam ENT Exam: Mucous Membranes Moist - Respiratory Exam Respiratory Exam: Clear to Ausculation Bilateral. absent: Rales, Rhonchi, Wheezes - Cardiovascular Exam Cardiovascular Exam: RRR, +S1, +S2 - GI/Abdominal Exam GI & Abdominal Exam: Soft, Normal Bowel Sounds, Organomegaly. absent: Distended , Firm, Guarding, Rigid, Tenderness, Mass - Extremities Exam Extremities Exam: Normal Inspection. absent: Pedal Edema - Neurological Exam Neurological Exam: Alert, Awake, Oriented x3 - Psychiatric Exam Psychiatric exam: Normal Affect, Normal Mood - Skin Skin Exam: Dry, Warm Assessment and Plan - Assessment and Plan (Free Text) Assessment: Patient is a 27yo female with PMHx significant for anemia who presented to the ED with complaint of fatigue and jaundice -Painless jaundice, suspect acute alcoholic hepatitis -Hepatosplenomegaly 2/2 above -Coagulopathy 2/2 above -Chronic anemia Plan: -CT triple phase reviewed - lesion which enhances in the arterial phase and persists through venous phase likely consistent with benign lesion - this is NOT characteristic of HCC -Recommend continuation of Prednisone 40mg PO QD for one month -Patient will require close follow up in [facility] in 2 weeks -Diet as tolerated -EtOH cessation/abstinence stressed -Autoimmune negative thusfar, HUGH pending -CMV IgG positive - indicative of prior infection - IgM pending -EBV/HSV negative <Kieran Mcdonald - Last Filed: 02/06/18 09:43> Objective - Vital Signs/Intake and Output Vital Signs (last 24 hours): Temp Pulse Resp BP Pulse Ox 98.3 F 61 20 98/63 L 97 02/06/18 06:00 02/06/18 06:00 02/06/18 06:00 02/06/18 06:00 02/06/18 06:00 Intake and Output: 02/06/18 02/06/18 06:59 18:59 Intake Total 480 Balance 480 - Medications Medications: Current Medications Ferrous Gluconate (Fergon) 324 mg PO DAILY [facility] Last Admin: 02/05/18 09:11 Dose: 324 mg Piperacillin Sod/Tazobactam Sod (Zosyn 3.375 In Ns 100ml) 100 mls @ 200 mls/hr IVPB Q6 [facility] PRN Reason: Protocol Stop: 02/11/18 12:01 Last Admin: 02/06/18 05:34 Dose: 200 mls/hr Ibuprofen (Motrin Tab) 400 mg PO Q6H PRN PRN Reason: Fever >100.4 F Multivitamins (Thera Tab) 1 tab PO DAILY [facility] Last Admin: 02/05/18 09:11 Dose: 1 tab Pantoprazole Sodium (Protonix Ec Tab) 40 mg PO 0600 [facility] Last Admin: 02/06/18 05:35 Dose: 40 mg Prednisone (Prednisone Tab) 40 mg PO DAILY [facility] Last Admin: 02/05/18 17:13 Dose: 40 mg - Labs Labs: 02/06/18 06:47 02/06/18 06:47 PT 22.9 SECONDS (9.4-12.5) H 02/04/18 06:30 INR 1.96 (0.93-1.08) H 02/04/18 06:30 APTT 40.2 Seconds (25.1-36.5) H 02/03/18 16:40 Attending/Attestation - Attestation I have personally seen and examined this patient.: Yes I have fully participated in the care of the patient.: Yes I have reviewed all pertinent clinical information, including history, physical exam and plan: Yes Notes (Text): 02/06/18 09:42 27 year old female who presents with jaundice, elevated lfts, massive hepatosplenomegaly in the setting of recent etoh use c/w alcoholic hepatitis. DF is over 32 and steroids are indicated. Infectious workup completely negative. Continue steroids x 1 month then taper. F/u in clinic in 2 weeks. Advise complete etoh abstinence.
[2018-02-06] MEDS: Multivitamin Therapeutic Tab PO SCH (12:15)
--- NOTE | 2018-02-06 19:24 | PN ---
DATE: 02/06/2018 SUBJECTIVE: The patient is seen earlier this morning in 565, bed 2. No fevers and no chills. PHYSICAL EXAMINATION VITAL SIGNS: Temperature is 98, blood pressure is 100/60, respiratory rate of 20, heart rate of 83. HEENT: Unremarkable. NECK: Supple. LUNGS: Decreased breath sounds. HEART: Normal S1 and S2. ABDOMEN: Soft, nontender. LABORATORY EXAMINATION: Reveals white count of 18,000, hemoglobin of 10, platelets of 358, BUN of 4, creatinine of 0.5. Urinalysis is noted. Toxicology is noted. Serology is noted. Microbiology reveals cultures are negative. Dr. Mcdonald's progress note is reviewed. ASSESSMENT AND PLAN: A 27-year-old female who is originally from [place], who is admitted with jaundice and painless direct hyperbilirubinemia with pancreatitis and history of acute alcohol abuse. Cultures are negative thus far. The patient is much better as of this morning when I saw her. GI to follow the patient. Jose Yun MD
== END 2018-02-06 14:06 | disposition home or self-care (01) | DRG 557 ==
LOC: ED 15:37 → ERH 20:01 → 2RSO 22:18 → 5RNO 02-05 18:26
PROVIDERS: ADMIT Internal Medicine; ATTEND Internal Medicine
DX: K70.10 Alcoholic hepatitis without ascites (principal); R65.10 Systemic inflammatory response syndrome (SIRS) of non-infectious origin without acute organ dysfunction; D68.4 Acquired coagulation factor deficiency; E87.6 Hypokalemia; D50.9 Iron deficiency anemia, unspecified; E78.1 Pure hyperglyceridemia; K76.0 Fatty (change of) liver, not elsewhere classified; E78.00 Pure hypercholesterolemia, unspecified; D18.03 Hemangioma of intra-abdominal structures; D72.829 Elevated white blood cell count, unspecified; T38.0X5A Adverse effect of glucocorticoids and synthetic analogues, initial encounter; R16.2 Hepatomegaly with splenomegaly, not elsewhere classified; E66.9 Obesity, unspecified; Z68.32 Body mass index [BMI] 32.0-32.9, adult; Z83.3 Family history of diabetes mellitus; Z87.19 Personal history of other diseases of the digestive system